=== PATIENT | male | born 1955 | race Caucasian/White ===

== ENCOUNTER 2017-08-09 19:48 | Emergency (ER) | payer OTHER | END 2017-08-10 00:22 | disposition home or self-care (01) | LOC: FTE 08-10 00:22 | DX: S00.03XA Contusion of scalp, initial encounter (principal); S60.521A Blister (nonthermal) of right hand, initial encounter; E11.9 Type 2 diabetes mellitus without complications; I25.10 Atherosclerotic heart disease of native coronary artery without angina pectoris; I10 Essential (primary) hypertension; V49.49XA Driver injured in collision with other motor vehicles in traffic accident, initial encounter; Z79.4 Long term (current) use of insulin; Z79.82 Long term (current) use of aspirin | CPT/HCPCS: 70450; 72125; 99285-25 ==

== ENCOUNTER 2018-04-24 11:41 | Inpatient (IN) | payer OTHER ==
[2018-04-24 15:05] LABS: ADD MAN DIFF? NO
[2018-04-24 15:07] LABS: WHITE BLOOD COUNT 7.8 10^3/ul (4.8-10.8)
[2018-04-24 15:07] LABS: BASOPHILS % 0.5 % (0.0-2.0); EOSINOPHILS # 0.1 10^3/ul (0.0-0.5); HEMATOCRIT 36.5 % (42.0-52.0); HEMOGLOBIN 11.8 g/dl (14.0-18.0); LYMPHOCYTES # 1.5 10^3/ul (0.8-2.9); LYMPHOCYTES % 19.1 % (15.0-51.0); MEAN CORPUSCULAR HEMOGLOBIN 31.6 pg (29.0-33.0); MEAN CORPUSCULAR HGB CONC 32.3 g/dl (32.0-37.0); MEAN CORPUSCULAR VOLUME 97.9 fl (82.0-101.0); MEAN PLATELET VOLUME 10.5 fl (7.4-10.4); MONOCYTE # 0.6 10^3/ul (0.3-0.9); MONOCYTES % 7.8 % (0.0-11.0); NEUTROPHIL # 5.6 10^3/ul (1.6-7.5); NEUTROPHILS % 71.2 % (39.0-77.0); PLATELET COUNT 361 10^3/UL (140-415); RED BLOOD COUNT 3.73 10^6/ul (4.70-6.10); RED CELL DISTRIBUTION WIDTH 13.2 % (11.5-14.5)
[2018-04-24 15:14] LABS: ANION GAP 9 (5-13); BLOOD UREA NITROGEN 26 mg/dl (7-20); CALCIUM 8.7 mg/dl (8.4-10.2); CARBON DIOXIDE 27 mmol/L (21-31); CHLORIDE 101 mmol/L (97-110); CREATININE 1.76 mg/dl (0.61-1.24); Estimated GFR 39 mL/min (>60); POTASSIUM 4.7 mmol/L (3.5-5.1); SODIUM 137 mmol/L (135-144)
[2018-04-24 15:26] LABS: B-TYPE NATRIURETIC PEPTIDE 541 PG/ML (0-125)
[2018-04-24 15:31] LABS: GLUCOSE 460 mg/dl (70-220)
[2018-04-24] MEDS: FUROSEMIDE 20 MG INJ IV (18:03)
[2018-04-24] MEDS ORDERED: ONDANSETRON 4 MG INJ IV (18:30)
[2018-04-24] MEDS ORDERED: ACETAMINOPHEN 325 MG TAB PO (18:30)
[2018-04-24] MEDS: INSULIN ASPART [NOVOLOG] 3 ML PEN SC ×2 (18:52→22:54)
[2018-04-24] MEDS ORDERED: DOCUSATE SODIUM 100 MG CAP PO (20:30)
[2018-04-24] MEDS ORDERED: NACL 0.9% 3 ML SYG IV (20:30)
[2018-04-24] MEDS ORDERED: BISACODYL (EC) 5 MG TAB PO (20:30)
[2018-04-24] MEDS ORDERED: GLUCOSE GEL 15 GRAM TUBE PO ×2 (21:30)
[2018-04-24] MEDS ORDERED: DEXTROSE 50% 50 ML SYRINGE IV ×2 (21:30)
[2018-04-24] MEDS ORDERED: GLUCOSE GEL 15 GRAM TUBE BUCCAL (21:30)
[2018-04-24] MEDS ORDERED: GLUCAGON 1 MG INJ IM (21:30)
[2018-04-24 22:43] LABS: ETHANOL < 10.0 mg/dl (0-0)
[2018-04-24 22:46] LABS: AMPHETAMINE/METHAMPHETAMINE Negative (NEGATIVE); BARBITURATES Negative (NEGATIVE); BENZODIAZEPINES Positive (NEGATIVE); CANNABINOIDS Negative (NEGATIVE); COCAINE Negative (NEGATIVE); OPIATES Negative (NEGATIVE)
[2018-04-24] MEDS: INSULIN GLARGINE [LANTus] (100 UNITS/ML) SYG SC (22:54)
[2018-04-24] MEDS: HEPARIN 5,000 UNIT/1 ML VIAL SC (22:55)
[2018-04-24] MEDS: ATORVASTATIN 40 MG TAB PO (22:56)
[2018-04-25] MEDS: ACETAMINOPHEN 325 MG TAB PO ×2 (00:17→10:42)
[2018-04-25] MEDS: ACCU-CHEK XX (02:32)
[2018-04-25 05:05] LABS: ADD MAN DIFF? NO
[2018-04-25 05:09] LABS: WHITE BLOOD COUNT 6.9 10^3/ul (4.8-10.8)
[2018-04-25 05:09] LABS: BASOPHIL # 0.1 10^3/ul (0.0-0.1); BASOPHILS % 0.9 % (0.0-2.0); EOSINOPHILS # 0.1 10^3/ul (0.0-0.5); EOSINOPHILS % 1.9 % (0.0-7.0); HEMATOCRIT 35.5 % (42.0-52.0); HEMOGLOBIN 11.5 g/dl (14.0-18.0); LYMPHOCYTES % 28.5 % (15.0-51.0); MEAN CORPUSCULAR HEMOGLOBIN 31.6 pg (29.0-33.0); MEAN CORPUSCULAR HGB CONC 32.4 g/dl (32.0-37.0); MEAN CORPUSCULAR VOLUME 97.5 fl (82.0-101.0); MEAN PLATELET VOLUME 10.3 fl (7.4-10.4); MONOCYTE # 0.6 10^3/ul (0.3-0.9); NEUTROPHIL # 4.1 10^3/ul (1.6-7.5); NEUTROPHILS % 59.3 % (39.0-77.0); PLATELET COUNT 367 10^3/UL (140-415); RED BLOOD COUNT 3.64 10^6/ul (4.70-6.10); RED CELL DISTRIBUTION WIDTH 13.1 % (11.5-14.5)
[2018-04-25] MEDS: PANTOPRAZOLE (EC) 40 MG TAB PO (05:14)
[2018-04-25] MEDS: BENZONATATE 100 MG CAP PO ×2 (05:18→22:14)
[2018-04-25 05:30] LABS: ALANINE AMINOTRANSFERASE 25 IU/L (13-69); ALBUMIN 3.1 g/dl (3.3-4.9); ALKALINE PHOSPHATASE 102 IU/L (42-121); ANION GAP 9 (5-13); ASPARTATE AMINO TRANSFERASE 24 IU/L (15-46); BLOOD UREA NITROGEN 25 mg/dl (7-20); CALCIUM 9.1 mg/dl (8.4-10.2); CARBON DIOXIDE 30 mmol/L (21-31); CHLORIDE 102 mmol/L (97-110); CREATININE 1.46 mg/dl (0.61-1.24); Estimated GFR 49 mL/min (>60); GLUCOSE 203 mg/dl (70-220); MAGNESIUM 1.9 mg/dl (1.7-2.5); POTASSIUM 4.2 mmol/L (3.5-5.1); SODIUM 141 mmol/L (135-144); TOTAL PROTEIN 6.2 g/dl (6.1-8.1)
[2018-04-25] MEDS: HEPARIN 5,000 UNIT/1 ML VIAL SC ×3 (06:19→21:43)
[2018-04-25] MEDS: INSULIN ASPART [NOVOLOG] 3 ML PEN SC ×7 (08:11→21:00)
[2018-04-25] MEDS: ASPIRIN (EC) 81 MG TAB PO (08:12)
[2018-04-25] MEDS: CLOPIDOGREL 75 MG TAB PO (08:12)
[2018-04-25] MEDS ORDERED: NON-FORMULARY/PATIENT OWN MED (Omeprazole* 20 MG) PO (09:00)
[2018-04-25] MEDS: FUROSEMIDE 40 MG INJ IV (09:23)
[2018-04-25] MEDS: FLUTICASONE/VILANTEROL 100-25 INH (10:43)
[2018-04-25 11:15] LABS: ADD UMIC YES; UR ASCORBIC ACID NEGATIVE (NEGATIVE); UR BACTERIA FEW /HPF (NONE SEEN); UR BILIRUBIN (Dip) NEGATIVE (NEGATIVE); UR BLOOD (Dip) NEGATIVE (NEGATIVE); UR CLARITY CLEAR (CLEAR); UR COLOR STRAW (YELLOW); UR GLUCOSE (Dip) 2+ mg/dL (NEGATIVE); UR KETONES (Dip) NEGATIVE (NEGATIVE); UR LEUKOCYTE ESTERASE (Dip) NEGATIVE Leu/ul (NEGATIVE); UR NITRITE (Dip) NEGATIVE (NEGATIVE); UR RBC 0 /HPF (0-5); UR SPECIFIC GRAVITY (Dip) 1.013 (1.003-1.030); UR TOTAL PROTEIN (Dip) 3+ mg/dl (NEGATIVE); UR UROBILINOGEN (Dip) NEGATIVE (NEGATIVE); UR WBC 0 /HPF (0-5)
[2018-04-25 11:22] LABS: CREATININE,URINE RANDOM 54.55 mg/dl (20-370)
[2018-04-25 11:22] LABS: SODIUM,URINE RANDOM 129 mmol/L (30-90)
[2018-04-25] MEDS: ATORVASTATIN 40 MG TAB PO (20:35)
[2018-04-25] MEDS: INSULIN GLARGINE [LANTus] (100 UNITS/ML) SYG SC (20:37)
[2018-04-26] MEDS: ACCU-CHEK XX (02:00)
[2018-04-26] MEDS: HEPARIN 5,000 UNIT/1 ML VIAL SC ×3 (05:20→21:49)
[2018-04-26] MEDS: PANTOPRAZOLE (EC) 40 MG TAB PO (05:20)
[2018-04-26 05:21] LABS: ADD MAN DIFF? NO
[2018-04-26 05:22] LABS: BASOPHIL # 0.1 10^3/ul (0.0-0.1); BASOPHILS % 0.9 % (0.0-2.0); EOSINOPHILS # 0.1 10^3/ul (0.0-0.5); EOSINOPHILS % 1.7 % (0.0-7.0); HEMATOCRIT 37.2 % (42.0-52.0); LYMPHOCYTES % 28.5 % (15.0-51.0); MEAN CORPUSCULAR HEMOGLOBIN 31.4 pg (29.0-33.0); MEAN CORPUSCULAR HGB CONC 32.3 g/dl (32.0-37.0); MEAN CORPUSCULAR VOLUME 97.4 fl (82.0-101.0); MEAN PLATELET VOLUME 9.9 fl (7.4-10.4); MONOCYTE # 0.6 10^3/ul (0.3-0.9); NEUTROPHIL # 4.1 10^3/ul (1.6-7.5); NEUTROPHILS % 59.3 % (39.0-77.0); PLATELET COUNT 394 10^3/UL (140-415); RED BLOOD COUNT 3.82 10^6/ul (4.70-6.10); RED CELL DISTRIBUTION WIDTH 13.1 % (11.5-14.5)
[2018-04-26] MEDS: BENZONATATE 100 MG CAP PO ×2 (05:25→14:21)
[2018-04-26 05:56] LABS: ANION GAP 7 (5-13); BLOOD UREA NITROGEN 22 mg/dl (7-20); CALCIUM 9.1 mg/dl (8.4-10.2); CARBON DIOXIDE 31 mmol/L (21-31); CHLORIDE 103 mmol/L (97-110); CREATININE 1.27 mg/dl (0.61-1.24); Estimated GFR 57 mL/min (>60); GLUCOSE 182 mg/dl (70-220); MAGNESIUM 1.9 mg/dl (1.7-2.5); PHOSPHORUS 5.5 mg/dl (2.5-4.9); POTASSIUM 4.1 mmol/L (3.5-5.1); SODIUM 141 mmol/L (135-144)
[2018-04-26 06:06] LABS: FREE T4 (FREE THYROXINE) 0.99 ng/dl (0.78-2.44)
[2018-04-26 07:07] LABS: CHOL/HDL RATIO 4.8 RATIO; HDL CHOLESTEROL 34 mg/dl (30-78); LDL CHOLESTEROL,CALCULATED 73 mg/dl; TRIGLYCERIDES 297 mg/dl (0-149)
[2018-04-26 07:07] LABS: CHOLESTEROL 166 mg/dl (100-200)
[2018-04-26] MEDS: INSULIN ASPART [NOVOLOG] 3 ML PEN SC ×7 (08:00→21:48)
[2018-04-26] MEDS: CLOPIDOGREL 75 MG TAB PO (08:05)
[2018-04-26] MEDS: FUROSEMIDE 40 MG INJ IV (08:05)
[2018-04-26] MEDS: ASPIRIN (EC) 81 MG TAB PO (08:06)
[2018-04-26] MEDS: FLUTICASONE/VILANTEROL 100-25 INH (08:06)
[2018-04-26 09:08] LABS: HAAIG REFLEX REFLEX FILED
[2018-04-26 10:20] LABS: HEMOGLOBIN A1C 10.2 % (0-5.9)
[2018-04-26 10:53] LABS: COMPLEMENT C3 142 mg/dl (88-165); COMPLEMENT C4 21 mg/dl (14-44)
[2018-04-26 11:19] LABS: HEPATITIS B SURFACE ANTIGEN NEGATIVE (NEGATIVE)
[2018-04-26 11:37] LABS: HEPATITIS B CORE ANTIBODY NEGATIVE (NEGATIVE); HEPATITIS C VIRAL ANTIBODY NEGATIVE (NEGATIVE)
[2018-04-26 19:12] LABS: RHEUMATOID FACTOR NEGATIVE (NEGATIVE)
[2018-04-26] MEDS: ATORVASTATIN 40 MG TAB PO (21:45)
[2018-04-26] MEDS: INSULIN GLARGINE [LANTus] (100 UNITS/ML) SYG SC (21:47)
[2018-04-27] MEDS: ACCU-CHEK XX (01:34)
[2018-04-27 05:29] LABS: ADD MAN DIFF? NO
[2018-04-27 05:33] LABS: BASOPHIL # 0.1 10^3/ul (0.0-0.1); BASOPHILS % 1.1 % (0.0-2.0); EOSINOPHILS # 0.1 10^3/ul (0.0-0.5); HEMOGLOBIN 12.3 g/dl (14.0-18.0); LYMPHOCYTES # 1.8 10^3/ul (0.8-2.9); LYMPHOCYTES % 27.2 % (15.0-51.0); MEAN CORPUSCULAR HEMOGLOBIN 31.7 pg (29.0-33.0); MEAN CORPUSCULAR HGB CONC 33.2 g/dl (32.0-37.0); MEAN CORPUSCULAR VOLUME 95.4 fl (82.0-101.0); MEAN PLATELET VOLUME 10.1 fl (7.4-10.4); MONOCYTE # 0.5 10^3/ul (0.3-0.9); MONOCYTES % 8.2 % (0.0-11.0); NEUTROPHILS % 60.9 % (39.0-77.0); PLATELET COUNT 367 10^3/UL (140-415); RED BLOOD COUNT 3.88 10^6/ul (4.70-6.10); RED CELL DISTRIBUTION WIDTH 13.2 % (11.5-14.5)
[2018-04-27 05:33] LABS: WHITE BLOOD COUNT 6.6 10^3/ul (4.8-10.8)
[2018-04-27] MEDS: PANTOPRAZOLE (EC) 40 MG TAB PO (05:46)
[2018-04-27] MEDS: HEPARIN 5,000 UNIT/1 ML VIAL SC ×2 (05:48→14:20)
[2018-04-27 06:15] LABS: ANION GAP 8 (5-13); BLOOD UREA NITROGEN 21 mg/dl (7-20); CALCIUM 8.9 mg/dl (8.4-10.2); CARBON DIOXIDE 30 mmol/L (21-31); CHLORIDE 102 mmol/L (97-110); CREATININE 1.25 mg/dl (0.61-1.24); Estimated GFR 59 mL/min (>60); GLUCOSE 264 mg/dl (70-220); MAGNESIUM 1.9 mg/dl (1.7-2.5); PHOSPHORUS 4.4 mg/dl (2.5-4.9); POTASSIUM 4.4 mmol/L (3.5-5.1); SODIUM 140 mmol/L (135-144)
[2018-04-27] MEDS: INSULIN ASPART [NOVOLOG] 3 ML PEN SC ×4 (08:03→12:32)
[2018-04-27] MEDS: FLUTICASONE/VILANTEROL 100-25 INH (08:33)
[2018-04-27] MEDS: ASPIRIN (EC) 81 MG TAB PO (08:33)
[2018-04-27] MEDS: ACETAMINOPHEN 325 MG TAB PO (08:33)
[2018-04-27] MEDS: CLOPIDOGREL 75 MG TAB PO (08:33)
[2018-04-27] MEDS: FUROSEMIDE 40 MG INJ IV (08:34)
[2018-04-27 17:47] LABS: CREATININE, RANDOM URINE 55 mg/dL (20-320); MICROALBUMIN 208.3 mg/dL; MICROALBUMIN/CREATININE RATIO 3787 (<30)
[2018-04-28 13:21] LABS: ANA SCREEN NEGATIVE (NEGATIVE); ANCA SCREEN NEGATIVE (NEGATIVE)
[2018-04-28 14:07] LABS: MYELOPEROXIDASE ANTIBODY <1.0 AI; PROTEINASE-3 ANTIBODY <1.0 AI
[2018-04-29 16:21] LABS: ANTI-DNA (DOUBLE STRANDED) <95 U/mL (< 301)
== END 2018-04-27 17:10 | disposition home or self-care (01) | DRG 683 ==
LOC: E/R 11:41 → PP2 18:28
PROC: 3E0234Z Introduction of Serum, Toxoid and Vaccine into Muscle, Percutaneous Approach (ICD-10-PCS; principal; 2018-04-26)
DX: N17.9 Acute kidney failure, unspecified (principal); I13.0 Hypertensive heart and chronic kidney disease with heart failure and stage 1 through stage 4 chronic kidney disease, or unspecified chronic kidney disease; I50.30 Unspecified diastolic (congestive) heart failure; G47.33 Obstructive sleep apnea (adult) (pediatric); E78.5 Hyperlipidemia, unspecified; E11.65 Type 2 diabetes mellitus with hyperglycemia; N18.9 Chronic kidney disease, unspecified; E11.22 Type 2 diabetes mellitus with diabetic chronic kidney disease; E11.51 Type 2 diabetes mellitus with diabetic peripheral angiopathy without gangrene; E11.21 Type 2 diabetes mellitus with diabetic nephropathy; E11.621 Type 2 diabetes mellitus with foot ulcer; B35.1 Tinea unguium; D64.9 Anemia, unspecified; Z23 Encounter for immunization; I25.10 Atherosclerotic heart disease of native coronary artery without angina pectoris; E11.42 Type 2 diabetes mellitus with diabetic polyneuropathy; J40 Bronchitis, not specified as acute or chronic; E66.9 Obesity, unspecified; Z86.73 Personal history of transient ischemic attack (TIA), and cerebral infarction without residual deficits; Z79.4 Long term (current) use of insulin; Z79.82 Long term (current) use of aspirin; Z68.31 Body mass index [BMI] 31.0-31.9, adult; S80.921A Unspecified superficial injury of right lower leg, initial encounter; X58.XXXA Exposure to other specified factors, initial encounter
CPT/HCPCS: 36415; 71045; 71250; 73590; 76775; 80048; 80053; 80061; 80307; 81001; 81003; 82040; 82043; 82595; 82962; 83036; 83735; 83880; 84100; 84155; 84300; 84439; 84443; 84484; 85025; 86021; 86038; 86160; 86226; 86430; 86704; 86709; 86803; 87081; 87340; 90686; 93005; 93923; 93970; 96374; 99285-25; G0378

== ENCOUNTER 2018-07-31 22:34 | Inpatient (IN) | payer OTHER ==
[2018-08-01 00:51] LABS: ADD MAN DIFF? NO
[2018-08-01 00:56] LABS: BASOPHIL # 0.1 10^3/ul (0.0-0.1); BASOPHILS % 0.4 % (0.0-2.0); EOSINOPHILS % 0.1 % (0.0-7.0); HEMATOCRIT 40.4 % (42.0-52.0); HEMOGLOBIN 14.6 g/dl (14.0-18.0); LYMPHOCYTES # 2.5 10^3/ul (0.8-2.9); LYMPHOCYTES % 17.9 % (15.0-51.0); MEAN CORPUSCULAR HEMOGLOBIN 30.9 pg (29.0-33.0); MEAN CORPUSCULAR HGB CONC 36.1 g/dl (32.0-37.0); MEAN CORPUSCULAR VOLUME 85.4 fl (82.0-101.0); MEAN PLATELET VOLUME 9.9 fl (7.4-10.4); MONOCYTE # 0.7 10^3/ul (0.3-0.9); MONOCYTES % 4.8 % (0.0-11.0); NEUTROPHIL # 10.6 10^3/ul (1.6-7.5); NEUTROPHILS % 76.4 % (39.0-77.0); PLATELET COUNT 310 10^3/UL (140-415); RED BLOOD COUNT 4.73 10^6/ul (4.70-6.10); RED CELL DISTRIBUTION WIDTH 11.8 % (11.5-14.5)
[2018-08-01 00:56] LABS: WHITE BLOOD COUNT 13.8 10^3/ul (4.8-10.8)
[2018-08-01 01:16] LABS: ALANINE AMINOTRANSFERASE 39 IU/L (13-69); ALBUMIN 3.4 g/dl (3.3-4.9); ALBUMIN/GLOBULIN RATIO 1.21; ALKALINE PHOSPHATASE 117 IU/L (42-121); ANION GAP 23 (5-13); ASPARTATE AMINO TRANSFERASE 29 IU/L (15-46); BILIRUBIN,INDIRECT 0.4 mg/dl (0-1.1); BILIRUBIN,TOTAL 0.4 mg/dl (0.2-1.3); BLOOD UREA NITROGEN 24 mg/dl (7-20); CALCIUM 8.9 mg/dl (8.4-10.2); CARBON DIOXIDE 19 mmol/L (21-31); CHLORIDE 92 mmol/L (97-110); CREATININE 1.32 mg/dl (0.61-1.24); Estimated GFR 55 mL/min (>60); LIPASE 227 U/L (23-300); POTASSIUM 3.7 mmol/L (3.5-5.1); SODIUM 134 mmol/L (135-144); TOTAL PROTEIN 6.2 g/dl (6.1-8.1)
[2018-08-01] MEDS: SOD CHLORIDE 0.9% 1,000 ML IV (01:19)
[2018-08-01] MEDS: ONDANSETRON 4 MG INJ IV ×2 (01:19→21:28)
[2018-08-01 01:26] LABS: GLUCOSE 456 mg/dl (70-220)
[2018-08-01] MEDS: INSULIN REGULAR, HUMAN 100 UNIT/1 ML 3ML VIAL SC (02:35)
[2018-08-01 04:54] LABS: MODE ROOM AIR; MetHgb Venous 0.2 %; Sample Type Blood venous; Site VENOUS LINE; Venous COHb 0.3 %; Venous Oxygen Sat 89.4 mmHG (55.0-75.0); Venous Total Hemglobin 13.2 g/dl
[2018-08-01 05:45] LABS: ANION GAP 17 (5-13); BLOOD UREA NITROGEN 21 mg/dl (7-20); CALCIUM 8.1 mg/dl (8.4-10.2); CARBON DIOXIDE 18 mmol/L (21-31); CHLORIDE 104 mmol/L (97-110); CREATININE 1.06 mg/dl (0.61-1.24); Estimated GFR > 60 mL/min (>60); GLUCOSE 260 mg/dl (70-220); SODIUM 139 mmol/L (135-144)
[2018-08-01] MEDS ORDERED: ONDANSETRON 4 MG INJ IV (06:00)
[2018-08-01] MEDS ORDERED: ACETAMINOPHEN 325 MG TAB PO (06:00)
[2018-08-01] MEDS ORDERED: ONDANSETRON 4 MG TAB PO (06:30)
[2018-08-01] MEDS ORDERED: DOCUSATE SODIUM 100 MG CAP PO (06:30)
[2018-08-01] MEDS ORDERED: NACL 0.9% 3 ML SYG IV (06:30)
[2018-08-01 07:00] LABS: MAGNESIUM 2.1 mg/dl (1.7-2.5)
[2018-08-01] MEDS ORDERED: NON-FORMULARY/PATIENT OWN MED (Omeprazole* 20 MG) PO (09:00)
[2018-08-01] MEDS: ACETAMINOPHEN 325 MG TAB PO (09:03)
[2018-08-01] MEDS: POTASSIUM CHLORIDE (SR) 20 MEQ TAB PO (09:05)
[2018-08-01] MEDS: ASPIRIN (EC) 81 MG TAB PO (09:06)
[2018-08-01] MEDS: THIAMINE 100 MG TAB PO (09:06)
[2018-08-01] MEDS: CHLORDIAZEPOXIDE 25 MG CAP PO ×3 (09:09→20:34)
[2018-08-01] MEDS: FOLIC ACID 1 MG TAB PO (09:09)
[2018-08-01] MEDS: MULTIVITAMINS THERAPEUTIC TAB PO (09:09)
[2018-08-01] MEDS: AMLODIPINE 2.5 MG TAB PO (09:10)
[2018-08-01] MEDS: CLOPIDOGREL 75 MG TAB PO (09:11)
[2018-08-01] MEDS: MULTIVITAMINS 10 ML, THIAMINE 100 MG, FOLIC ACID 1 MG in SOD CHLORIDE 0.9% 1,000 ML IVPB (09:11)
[2018-08-01] MEDS: INSULIN GLARGINE [LANTus] (100 UNITS/ML) SYG SC ×2 (09:27→20:36)
[2018-08-01] MEDS: INSULIN ASPART [NOVOLOG] 3 ML PEN SC ×5 (09:29→20:34)
[2018-08-01] MEDS: LORAZEPAM 1 MG TAB PO (12:28)
[2018-08-01] MEDS: FLUTICASONE/VILANTEROL 100-25 INH (17:54)
[2018-08-01] MEDS: traMADol 50 MG TAB PO (18:42)
[2018-08-01] MEDS: ATORVASTATIN 20 MG TAB PO (20:34)
[2018-08-01] MEDS: HEPARIN 5,000 UNIT/1 ML VIAL SC (20:37)
[2018-08-01] MEDS: CEPASTAT LOZENGE MT ×2 (20:56→23:16)
[2018-08-01] MEDS: HYDROCODONE/APAP (5/325) TAB PO (21:27)
[2018-08-02] MEDS: LABETALOL 200 MG TAB PO (01:41)
[2018-08-02 05:09] LABS: ADD MAN DIFF? NO
[2018-08-02 05:22] LABS: BASOPHILS % 0.4 % (0.0-2.0); EOSINOPHILS % 0.4 % (0.0-7.0); HEMATOCRIT 35.8 % (42.0-52.0); HEMOGLOBIN 12.6 g/dl (14.0-18.0); LYMPHOCYTES # 2.3 10^3/ul (0.8-2.9); LYMPHOCYTES % 22.9 % (15.0-51.0); MEAN CORPUSCULAR HGB CONC 35.2 g/dl (32.0-37.0); MEAN PLATELET VOLUME 9.7 fl (7.4-10.4); MONOCYTE # 0.5 10^3/ul (0.3-0.9); MONOCYTES % 5.3 % (0.0-11.0); NEUTROPHIL # 6.9 10^3/ul (1.6-7.5); NEUTROPHILS % 70.5 % (39.0-77.0); PLATELET COUNT 211 10^3/UL (140-415); RED BLOOD COUNT 4.07 10^6/ul (4.70-6.10)
[2018-08-02 05:22] LABS: WHITE BLOOD COUNT 9.8 10^3/ul (4.8-10.8)
[2018-08-02 05:51] LABS: PHOSPHORUS 2.9 mg/dl (2.5-4.9)
[2018-08-02 05:51] LABS: MAGNESIUM 1.9 mg/dl (1.7-2.5)
[2018-08-02] MEDS: PANTOPRAZOLE (EC) 40 MG TAB PO (05:56)
[2018-08-02] MEDS: HYDROCODONE/APAP (5/325) TAB PO ×2 (05:56→10:33)
[2018-08-02 05:57] LABS: ALANINE AMINOTRANSFERASE 41 IU/L (13-69); ALBUMIN 2.5 g/dl (3.3-4.9); ALKALINE PHOSPHATASE 110 IU/L (42-121); ANION GAP 12 (5-13); ASPARTATE AMINO TRANSFERASE 39 IU/L (15-46); BILIRUBIN,INDIRECT 0.7 mg/dl (0-1.1); BILIRUBIN,TOTAL 0.7 mg/dl (0.2-1.3); BLOOD UREA NITROGEN 18 mg/dl (7-20); CALCIUM 7.4 mg/dl (8.4-10.2); CARBON DIOXIDE 21 mmol/L (21-31); CHLORIDE 101 mmol/L (97-110); CHOL/HDL RATIO 3.4 RATIO; CHOLESTEROL 92 mg/dl (100-200); CREATININE 1.08 mg/dl (0.61-1.24); Estimated GFR > 60 mL/min (>60); GLUCOSE 231 mg/dl (70-220); HDL CHOLESTEROL 27 mg/dl (30-78); POTASSIUM 3.1 mmol/L (3.5-5.1); SODIUM 134 mmol/L (135-144)
[2018-08-02 06:15] LABS: TRIGLYCERIDES 671 mg/dl (0-149)
[2018-08-02 07:13] LABS: HEMOGLOBIN A1C 10.3 % (0-5.9)
[2018-08-02] MEDS: ASPIRIN (EC) 81 MG TAB PO (08:08)
[2018-08-02] MEDS: FOLIC ACID 1 MG TAB PO (08:08)
[2018-08-02] MEDS: CHLORDIAZEPOXIDE 25 MG CAP PO ×2 (08:09→13:08)
[2018-08-02] MEDS: THIAMINE 100 MG TAB PO (08:09)
[2018-08-02] MEDS: MULTIVITAMINS THERAPEUTIC TAB PO (08:10)
[2018-08-02] MEDS: FLUTICASONE/VILANTEROL 100-25 INH (08:10)
[2018-08-02] MEDS: CLOPIDOGREL 75 MG TAB PO (08:10)
[2018-08-02] MEDS: HEPARIN 5,000 UNIT/1 ML VIAL SC ×2 (08:11→20:10)
[2018-08-02] MEDS: INSULIN ASPART [NOVOLOG] 3 ML PEN SC ×7 (08:12→20:09)
[2018-08-02] MEDS: AMLODIPINE 2.5 MG TAB PO (08:14)
[2018-08-02] MEDS: ENALAPRILAT 1.25 MG INJ IV (08:15)
[2018-08-02] MEDS ORDERED: GLUCOSE GEL 15 GRAM TUBE BUCCAL (10:30)
[2018-08-02] MEDS ORDERED: DEXTROSE 50% 50 ML SYRINGE IV ×2 (10:30)
[2018-08-02] MEDS ORDERED: GLUCAGON 1 MG INJ IM (10:30)
[2018-08-02] MEDS ORDERED: GLUCOSE GEL 15 GRAM TUBE PO ×2 (10:30)
[2018-08-02] MEDS: ONDANSETRON 4 MG INJ IV (10:32)
[2018-08-02] MEDS: POTASSIUM CHLORIDE (SR) 20 MEQ TAB PO (10:33)
[2018-08-02] MEDS: BISACODYL (EC) 5 MG TAB PO (10:38)
[2018-08-02] MEDS: metFORMIN 500 MG TAB PO (17:42)
[2018-08-02] MEDS: traMADol 50 MG TAB PO (20:04)
[2018-08-02] MEDS: ATORVASTATIN 20 MG TAB PO (20:04)
[2018-08-02] MEDS: INSULIN GLARGINE [LANTus] (100 UNITS/ML) SYG SC (20:09)
[2018-08-02] MEDS: LORAZEPAM 1 MG TAB PO (21:06)
[2018-08-02] MEDS: CEPASTAT LOZENGE MT (21:59)
[2018-08-03] MEDS: ACETAMINOPHEN 325 MG TAB PO ×3 (02:08→22:15)
[2018-08-03] MEDS: CEPASTAT LOZENGE MT (02:09)
[2018-08-03 05:19] LABS: ADD MAN DIFF? NO
[2018-08-03 05:20] LABS: BASOPHIL # 0.1 10^3/ul (0.0-0.1); BASOPHILS % 0.4 % (0.0-2.0); EOSINOPHILS # 0.2 10^3/ul (0.0-0.5); EOSINOPHILS % 1.1 % (0.0-7.0); HEMATOCRIT 35.3 % (42.0-52.0); HEMOGLOBIN 12.3 g/dl (14.0-18.0); LYMPHOCYTES # 1.8 10^3/ul (0.8-2.9); LYMPHOCYTES % 10.6 % (15.0-51.0); MEAN CORPUSCULAR HEMOGLOBIN 30.8 pg (29.0-33.0); MEAN CORPUSCULAR HGB CONC 34.8 g/dl (32.0-37.0); MEAN CORPUSCULAR VOLUME 88.3 fl (82.0-101.0); MEAN PLATELET VOLUME 10.1 fl (7.4-10.4); MONOCYTE # 0.8 10^3/ul (0.3-0.9); MONOCYTES % 4.6 % (0.0-11.0); NEUTROPHIL # 13.6 10^3/ul (1.6-7.5); NEUTROPHILS % 81.9 % (39.0-77.0); NUCLEATED RED BLOOD CELLS% 0.2 /100WBC (0.0-0.0); PLATELET COUNT 146 10^3/UL (140-415)
[2018-08-03 05:20] LABS: WHITE BLOOD COUNT 16.6 10^3/ul (4.8-10.8)
[2018-08-03 05:39] LABS: ALANINE AMINOTRANSFERASE 43 IU/L (13-69); ALBUMIN 2.6 g/dl (3.3-4.9); ALKALINE PHOSPHATASE 127 IU/L (42-121); ANION GAP 10 (5-13); ASPARTATE AMINO TRANSFERASE 46 IU/L (15-46); BILIRUBIN,INDIRECT 0.7 mg/dl (0-1.1); BILIRUBIN,TOTAL 0.7 mg/dl (0.2-1.3); BLOOD UREA NITROGEN 14 mg/dl (7-20); CALCIUM 7.2 mg/dl (8.4-10.2); CARBON DIOXIDE 22 mmol/L (21-31); CHLORIDE 98 mmol/L (97-110); CREATININE 1.19 mg/dl (0.61-1.24); Estimated GFR > 60 mL/min (>60); GLUCOSE 183 mg/dl (70-220); POTASSIUM 3.4 mmol/L (3.5-5.1); SODIUM 130 mmol/L (135-144); TOTAL PROTEIN 5.2 g/dl (6.1-8.1)
[2018-08-03] MEDS: PANTOPRAZOLE (EC) 40 MG TAB PO (05:40)
[2018-08-03] MEDS: traMADol 50 MG TAB PO (05:41)
[2018-08-03] MEDS: AMLODIPINE 2.5 MG TAB PO (08:03)
[2018-08-03] MEDS: FOLIC ACID 1 MG TAB PO (08:03)
[2018-08-03] MEDS: CLOPIDOGREL 75 MG TAB PO (08:03)
[2018-08-03] MEDS: ASPIRIN (EC) 81 MG TAB PO (08:03)
[2018-08-03] MEDS: FLUTICASONE/VILANTEROL 100-25 INH (08:03)
[2018-08-03] MEDS: THIAMINE 100 MG TAB PO (08:04)
[2018-08-03] MEDS: MULTIVITAMINS THERAPEUTIC TAB PO (08:04)
[2018-08-03] MEDS: metFORMIN 500 MG TAB PO ×2 (08:04→17:47)
[2018-08-03] MEDS: INSULIN ASPART [NOVOLOG] 3 ML PEN SC ×7 (08:10→20:51)
[2018-08-03] MEDS: HEPARIN 5,000 UNIT/1 ML VIAL SC ×2 (08:11→21:01)
[2018-08-03] MEDS ORDERED: CHLORDIAZEPOXIDE 25 MG CAP PO (09:00)
[2018-08-03] MEDS: SOD CHLORIDE 0.9% 1,000 ML IV (11:32)
[2018-08-03] MEDS: POTASSIUM CHLORIDE (SR) 20 MEQ TAB PO (11:33)
[2018-08-03] MEDS: CEFTRIAXONE 1 GM/50 ML (PMX) 50 ML IVPB (16:05)
[2018-08-03] MEDS: ATORVASTATIN 20 MG TAB PO (20:59)
[2018-08-03 21:37] LABS: GLUCOSE 86 mg/dl (70-220)
[2018-08-03] MEDS: INSULIN GLARGINE [LANTus] (100 UNITS/ML) SYG SC (22:20)
[2018-08-03 22:31] LABS: ADD UMIC YES; UR ASCORBIC ACID NEGATIVE (NEGATIVE); UR BACTERIA FEW /HPF (NONE SEEN); UR BILIRUBIN (Dip) NEGATIVE (NEGATIVE); UR BLOOD (Dip) 3+ mg/dL (NEGATIVE); UR CLARITY CLEAR (CLEAR); UR COLOR YELLOW (YELLOW); UR GLUCOSE (Dip) NEGATIVE (NEGATIVE); UR KETONES (Dip) NEGATIVE (NEGATIVE); UR LEUKOCYTE ESTERASE (Dip) 3+ Leu/ul (NEGATIVE); UR NITRITE (Dip) NEGATIVE (NEGATIVE); UR RBC 14 /HPF (0-5); UR SPECIFIC GRAVITY (Dip) 1.008 (1.003-1.030); UR SQUAMOUS EPITHELIAL CELL MODERATE /HPF (FEW); UR TOTAL PROTEIN (Dip) 2+ mg/dl (NEGATIVE); UR UROBILINOGEN (Dip) NEGATIVE (NEGATIVE); UR WBC 27 /HPF (0-5)
[2018-08-04] MEDS: CEPASTAT LOZENGE MT ×2 (04:36→16:20)
[2018-08-04] MEDS: PANTOPRAZOLE (EC) 40 MG TAB PO (06:04)
[2018-08-04] MEDS: INSULIN ASPART [NOVOLOG] 3 ML PEN SC ×7 (07:59→20:32)
[2018-08-04 08:14] LABS: ADD MAN DIFF? NO
[2018-08-04] MEDS: FOLIC ACID 1 MG TAB PO (08:17)
[2018-08-04] MEDS: ASPIRIN (EC) 81 MG TAB PO (08:17)
[2018-08-04] MEDS: MULTIVITAMINS THERAPEUTIC TAB PO (08:17)
[2018-08-04] MEDS: CLOPIDOGREL 75 MG TAB PO (08:17)
[2018-08-04] MEDS: THIAMINE 100 MG TAB PO (08:17)
[2018-08-04] MEDS: AMLODIPINE 2.5 MG TAB PO (08:17)
[2018-08-04] MEDS: metFORMIN 500 MG TAB PO ×2 (08:17→17:52)
[2018-08-04] MEDS: FLUTICASONE/VILANTEROL 100-25 INH (08:18)
[2018-08-04] MEDS: HEPARIN 5,000 UNIT/1 ML VIAL SC ×2 (08:20→20:33)
[2018-08-04 08:22] LABS: WHITE BLOOD COUNT 16.8 10^3/ul (4.8-10.8)
[2018-08-04 08:22] LABS: BASOPHIL # 0.1 10^3/ul (0.0-0.1); BASOPHILS % 0.4 % (0.0-2.0); EOSINOPHILS # 0.2 10^3/ul (0.0-0.5); EOSINOPHILS % 1.1 % (0.0-7.0); HEMATOCRIT 34.4 % (42.0-52.0); LYMPHOCYTES # 1.3 10^3/ul (0.8-2.9); LYMPHOCYTES % 7.9 % (15.0-51.0); MEAN CORPUSCULAR HEMOGLOBIN 31.3 pg (29.0-33.0); MEAN CORPUSCULAR HGB CONC 34.9 g/dl (32.0-37.0); MEAN CORPUSCULAR VOLUME 89.6 fl (82.0-101.0); MEAN PLATELET VOLUME 10.4 fl (7.4-10.4); MONOCYTE # 0.7 10^3/ul (0.3-0.9); MONOCYTES % 4.4 % (0.0-11.0); NEUTROPHIL # 14.3 10^3/ul (1.6-7.5); NEUTROPHILS % 85.4 % (39.0-77.0); PLATELET COUNT 117 10^3/UL (140-415); RED BLOOD COUNT 3.84 10^6/ul (4.70-6.10); RED CELL DISTRIBUTION WIDTH 12.8 % (11.5-14.5)
[2018-08-04 08:32] LABS: ALANINE AMINOTRANSFERASE 29 IU/L (13-69); ALBUMIN 2.5 g/dl (3.3-4.9); ALBUMIN/GLOBULIN RATIO 0.83; ALKALINE PHOSPHATASE 160 IU/L (42-121); ANION GAP 6 (5-13); ASPARTATE AMINO TRANSFERASE 24 IU/L (15-46); BILIRUBIN,INDIRECT 0.3 mg/dl (0-1.1); BILIRUBIN,TOTAL 0.3 mg/dl (0.2-1.3); BLOOD UREA NITROGEN 14 mg/dl (7-20); CALCIUM 7.8 mg/dl (8.4-10.2); CARBON DIOXIDE 24 mmol/L (21-31); CHLORIDE 106 mmol/L (97-110); CREATININE 1.34 mg/dl (0.61-1.24); Estimated GFR 54 mL/min (>60); GLUCOSE 276 mg/dl (70-220); POTASSIUM 3.5 mmol/L (3.5-5.1); SODIUM 136 mmol/L (135-144); TOTAL PROTEIN 5.5 g/dl (6.1-8.1)
[2018-08-04] MEDS: CEFTRIAXONE 1 GM/50 ML (PMX) 50 ML IVPB (14:49)
[2018-08-04] MEDS: GABAPENTIN 300 MG CAP PO ×2 (15:55→21:34)
[2018-08-04] MEDS: ATORVASTATIN 20 MG TAB PO (20:27)
[2018-08-04] MEDS: INSULIN GLARGINE [LANTus] (100 UNITS/ML) SYG SC (20:33)
[2018-08-05 05:22] LABS: ADD MAN DIFF? NO
[2018-08-05 05:35] LABS: BASOPHILS % 0.2 % (0.0-2.0); EOSINOPHILS # 0.3 10^3/ul (0.0-0.5); EOSINOPHILS % 2.2 % (0.0-7.0); HEMATOCRIT 33.1 % (42.0-52.0); HEMOGLOBIN 11.5 g/dl (14.0-18.0); LYMPHOCYTES # 1.7 10^3/ul (0.8-2.9); LYMPHOCYTES % 14.3 % (15.0-51.0); MEAN CORPUSCULAR HEMOGLOBIN 31.4 pg (29.0-33.0); MEAN CORPUSCULAR HGB CONC 34.7 g/dl (32.0-37.0); MEAN CORPUSCULAR VOLUME 90.4 fl (82.0-101.0); MEAN PLATELET VOLUME 10.8 fl (7.4-10.4); MONOCYTE # 0.7 10^3/ul (0.3-0.9); MONOCYTES % 5.9 % (0.0-11.0); NEUTROPHIL # 9.3 10^3/ul (1.6-7.5); NEUTROPHILS % 76.7 % (39.0-77.0); PLATELET COUNT 125 10^3/UL (140-415); RED BLOOD COUNT 3.66 10^6/ul (4.70-6.10); RED CELL DISTRIBUTION WIDTH 12.9 % (11.5-14.5)
[2018-08-05 05:35] LABS: WHITE BLOOD COUNT 12.1 10^3/ul (4.8-10.8)
[2018-08-05] MEDS: PANTOPRAZOLE (EC) 40 MG TAB PO (05:55)
[2018-08-05 06:27] LABS: ALANINE AMINOTRANSFERASE 34 IU/L (13-69); ALBUMIN 2.5 g/dl (3.3-4.9); ALKALINE PHOSPHATASE 176 IU/L (42-121); ANION GAP 7 (5-13); ASPARTATE AMINO TRANSFERASE 41 IU/L (15-46); BILIRUBIN,INDIRECT 0.1 mg/dl (0-1.1); BILIRUBIN,TOTAL 0.1 mg/dl (0.2-1.3); BLOOD UREA NITROGEN 12 mg/dl (7-20); CALCIUM 8.2 mg/dl (8.4-10.2); CARBON DIOXIDE 24 mmol/L (21-31); CHLORIDE 107 mmol/L (97-110); CREATININE 1.48 mg/dl (0.61-1.24); Estimated GFR 48 mL/min (>60); GLUCOSE 227 mg/dl (70-220); POTASSIUM 3.6 mmol/L (3.5-5.1); SODIUM 138 mmol/L (135-144); TOTAL PROTEIN 5.6 g/dl (6.1-8.1)
[2018-08-05] MEDS: FOLIC ACID 1 MG TAB PO (08:19)
[2018-08-05] MEDS: CLOPIDOGREL 75 MG TAB PO (08:20)
[2018-08-05] MEDS: GABAPENTIN 300 MG CAP PO ×2 (08:20→12:53)
[2018-08-05] MEDS: AMLODIPINE 2.5 MG TAB PO (08:20)
[2018-08-05] MEDS: ASPIRIN (EC) 81 MG TAB PO (08:20)
[2018-08-05] MEDS: FLUTICASONE/VILANTEROL 100-25 INH (08:21)
[2018-08-05] MEDS: INSULIN ASPART [NOVOLOG] 3 ML PEN SC ×4 (08:28→12:56)
[2018-08-05] MEDS: HEPARIN 5,000 UNIT/1 ML VIAL SC (08:30)
[2018-08-05] MEDS: THIAMINE 100 MG TAB PO (08:30)
[2018-08-05] MEDS: MULTIVITAMINS THERAPEUTIC TAB PO (08:30)
[2018-08-05] MEDS: metFORMIN 500 MG TAB PO (08:32)
== END 2018-08-05 15:50 | disposition home or self-care (01) | DRG 683 ==
LOC: E/R 22:34 → 2NE 08-01 06:01
DX: N17.9 Acute kidney failure, unspecified (principal); E87.1 Hypo-osmolality and hyponatremia; E87.2 Acidosis; E11.65 Type 2 diabetes mellitus with hyperglycemia; E86.0 Dehydration; F10.129 Alcohol abuse with intoxication, unspecified; Y90.8 Blood alcohol level of 240 mg/100 ml or more; E87.6 Hypokalemia; I12.9 Hypertensive chronic kidney disease with stage 1 through stage 4 chronic kidney disease, or unspecified chronic kidney disease; E11.22 Type 2 diabetes mellitus with diabetic chronic kidney disease; N18.9 Chronic kidney disease, unspecified; Z91.14 Patient's other noncompliance with medication regimen; K21.9 Gastro-esophageal reflux disease without esophagitis; R10.84 Generalized abdominal pain; R11.2 Nausea with vomiting, unspecified; Z86.73 Personal history of transient ischemic attack (TIA), and cerebral infarction without residual deficits; K70.10 Alcoholic hepatitis without ascites
CPT/HCPCS: 36415; 71045; 80048; 80053; 80061; 80307; 81001; 82306; 82803; 82947; 82962; 83036; 83690; 83735; 84100; 84443; 85025; 87040-91; 87086; 96372; 96374; 97110; 97116; 97161; 97530; 99285-25

== ENCOUNTER 2018-08-09 11:14 | Inpatient (IN) | payer OTHER ==
[2018-08-09 13:29] LABS: ADD MAN DIFF? NO
[2018-08-09 13:33] LABS: BASOPHILS % 0.3 % (0.0-2.0); EOSINOPHILS # 0.1 10^3/ul (0.0-0.5); EOSINOPHILS % 0.4 % (0.0-7.0); HEMATOCRIT 31.2 % (42.0-52.0); HEMOGLOBIN 10.4 g/dl (14.0-18.0); LYMPHOCYTES # 1.6 10^3/ul (0.8-2.9); LYMPHOCYTES % 12.3 % (15.0-51.0); MEAN CORPUSCULAR HEMOGLOBIN 31.3 pg (29.0-33.0); MEAN CORPUSCULAR HGB CONC 33.3 g/dl (32.0-37.0); MEAN PLATELET VOLUME 9.6 fl (7.4-10.4); MONOCYTE # 0.9 10^3/ul (0.3-0.9); MONOCYTES % 6.8 % (0.0-11.0); NEUTROPHIL # 9.8 10^3/ul (1.6-7.5); NEUTROPHILS % 77.9 % (39.0-77.0); NUCLEATED RED BLOOD CELLS% 0.2 /100WBC (0.0-0.0); PLATELET COUNT 282 10^3/UL (140-415); RED BLOOD COUNT 3.32 10^6/ul (4.70-6.10); RED CELL DISTRIBUTION WIDTH 13.7 % (11.5-14.5); RETICULOCYTE COUNT # 0.097 X10^6 (0.020-0.110); RETICULOCYTE COUNT % 2.9 % (0.5-1.5); RETICULOCYTE RBC 3.32
[2018-08-09 13:33] LABS: WHITE BLOOD COUNT 12.6 10^3/ul (4.8-10.8)
[2018-08-09] MEDS: ONDANSETRON 4 MG INJ IV (13:38)
[2018-08-09] MEDS: morphine 4 MG/ML VIAL IV (13:38)
[2018-08-09] MEDS: SOD CHLORIDE 0.9% 1,000 ML IV (13:38)
[2018-08-09 13:54] LABS: IRON 70 ug/dl (35-150)
[2018-08-09 13:56] LABS: ALANINE AMINOTRANSFERASE 46 IU/L (13-69); ALBUMIN 2.9 g/dl (3.3-4.9); ALBUMIN/GLOBULIN RATIO 0.93; ALKALINE PHOSPHATASE 135 IU/L (42-121); AMYLASE 71 U/L (11-123); ANION GAP 8 (5-13); ASPARTATE AMINO TRANSFERASE 30 IU/L (15-46); BILIRUBIN,INDIRECT 0.1 mg/dl (0-1.1); BILIRUBIN,TOTAL 0.1 mg/dl (0.2-1.3); BLOOD UREA NITROGEN 15 mg/dl (7-20); CARBON DIOXIDE 23 mmol/L (21-31); CHLORIDE 109 mmol/L (97-110); CREATININE 1.21 mg/dl (0.61-1.24); Estimated GFR > 60 mL/min (>60); GLUCOSE 215 mg/dl (70-220); LACTATE DEHYDROGENASE 521 IU/L (313-618); LIPASE 131 U/L (23-300); POTASSIUM 4.1 mmol/L (3.5-5.1); SODIUM 140 mmol/L (135-144)
[2018-08-09 13:57] LABS: INR 0.94; PROTIME 12.7 Sec (11.9-14.9)
[2018-08-09 13:58] LABS: PARTIAL THROMBOPLASTIN TIME 26.8 Sec (23.0-35.0)
[2018-08-09 14:03] LABS: % IRON SATURATION 29 % SAT (22-52); TOTAL IRON BINDING CAPACITY 242 ug/dl (241-421)
[2018-08-09 14:25] LABS: AMMONIA 14 umol/l (9-30)
[2018-08-09 14:31] LABS: ETHANOL < 10.0 mg/dl (0-0)
[2018-08-09] MEDS: ASPIRIN 325 MG TAB PO (14:41)
[2018-08-09] MEDS: IODIXANOL LOCM 100 ML BTL (14:51)
[2018-08-09] MEDS: SOD CHLORIDE 0.9% 100 ML (14:51)
[2018-08-09] MEDS: MAGNESIUM SULFATE 2 GM, MULTIVITAMINS 10 ML, THIAMINE 100 MG, FOLIC ACID 1 MG in SOD CH... IV (15:38)
[2018-08-09] MEDS ORDERED: ONDANSETRON 4 MG INJ IV (16:30)
[2018-08-09] MEDS ORDERED: ACETAMINOPHEN 325 MG TAB PO ×2 (16:30→17:00)
[2018-08-09] MEDS ORDERED: SOD CHLORIDE 0.9% 1,000 ML IV (16:51)
[2018-08-09] MEDS ORDERED: NACL 0.9% 3 ML SYG IV (17:00)
[2018-08-09] MEDS: HYDROCODONE/APAP (5/325) TAB PO (17:00)
[2018-08-09] MEDS ORDERED: DEXTROSE 50% 50 ML SYRINGE IV ×2 (17:30)
[2018-08-09] MEDS ORDERED: GLUCOSE GEL 15 GRAM TUBE BUCCAL (17:30)
[2018-08-09] MEDS ORDERED: GLUCAGON 1 MG INJ IM (17:30)
[2018-08-09] MEDS ORDERED: ALBUTEROL/IPRATROPIUM (NEB) 3 ML AMP HHN (17:30)
[2018-08-09] MEDS ORDERED: GLUCOSE GEL 15 GRAM TUBE PO ×2 (17:30)
[2018-08-09] MEDS ORDERED: NITROGLYCERIN (SL) 0.4 MG TAB SL (17:30)
[2018-08-09 18:47] LABS: ADD MAN DIFF? NO
[2018-08-09 18:51] LABS: WHITE BLOOD COUNT 12.8 10^3/ul (4.8-10.8)
[2018-08-09 18:51] LABS: BASOPHIL # 0.1 10^3/ul (0.0-0.1); BASOPHILS % 0.4 % (0.0-2.0); EOSINOPHILS # 0.1 10^3/ul (0.0-0.5); EOSINOPHILS % 0.6 % (0.0-7.0); HEMATOCRIT 31.9 % (42.0-52.0); HEMOGLOBIN 10.5 g/dl (14.0-18.0); LYMPHOCYTES # 1.5 10^3/ul (0.8-2.9); LYMPHOCYTES % 11.9 % (15.0-51.0); MEAN CORPUSCULAR HEMOGLOBIN 31.3 pg (29.0-33.0); MEAN CORPUSCULAR HGB CONC 32.9 g/dl (32.0-37.0); MEAN CORPUSCULAR VOLUME 95.2 fl (82.0-101.0); MEAN PLATELET VOLUME 9.8 fl (7.4-10.4); MONOCYTE # 0.8 10^3/ul (0.3-0.9); MONOCYTES % 6.6 % (0.0-11.0); NEUTROPHILS % 78.5 % (39.0-77.0); PLATELET COUNT 310 10^3/UL (140-415); RED BLOOD COUNT 3.35 10^6/ul (4.70-6.10); RED CELL DISTRIBUTION WIDTH 14.1 % (11.5-14.5)
[2018-08-09 19:13] LABS: INR 0.96; PROTIME 12.9 Sec (11.9-14.9)
[2018-08-09 19:14] LABS: PARTIAL THROMBOPLASTIN TIME 27.7 Sec (23.0-35.0)
[2018-08-09 19:27] LABS: B-TYPE NATRIURETIC PEPTIDE 6660 PG/ML (0-125)
[2018-08-09 19:31] LABS: TROPONIN-I 0.977 ng/ml (0.000-0.120)
[2018-08-09] MEDS: ALBUTEROL/IPRATROPIUM (NEB) 3 ML AMP HHN (20:00)
[2018-08-09] MEDS: SUCRALFATE (100 MG/ML) 10ML CUP PO ×2 (21:00→21:31)
[2018-08-09] MEDS: morphine 2 MG INJ IV (21:21)
[2018-08-09] MEDS: CEFTRIAXONE 1 GM/50 ML (PMX) 50 ML IVPB (21:21)
[2018-08-09] MEDS: HEPARIN 1000 UNITS/ML 10 ML INJ IV (21:26)
[2018-08-09] MEDS: FAMOTIDINE 20 MG INJ IV (21:28)
[2018-08-09] MEDS: ATORVASTATIN 80 MG TAB PO (21:31)
[2018-08-09] MEDS: INSULIN ASPART [NOVOLOG] 3 ML PEN SC (22:16)
[2018-08-09] MEDS: INSULIN GLARGINE [LANTus] (100 UNITS/ML) SYG SC (22:17)
[2018-08-09 23:38] LABS: HEMATOCRIT 35.7 % (42.0-52.0); HEMOGLOBIN 11.3 g/dl (14.0-18.0)
[2018-08-10] MEDS: hydrALAzine 20 MG INJ IV (00:43)
[2018-08-10 00:55] LABS: TROPONIN-I 0.995 ng/ml (0.000-0.120)
[2018-08-10] MEDS: ACCU-CHEK XX (02:00)
[2018-08-10 02:20] LABS: AADO2 Arterial 143.7 mmHg (7.0-24.0); Allen Test ACCEPTAB; Arterial Base Excess -5.3 mmol/L (-3.0-3); Arterial Blood Gas Oxygen Sat 98.8 mmHG (95.0-98.0); Arterial COHb 0.2 % (0.0-3.0); Arterial Fraction of Oxyhgb 98.3 % (93.0-99.0); Arterial HCO3 17.3 mmol/L (22.0-26.0); Arterial MetHb 0.3 % (0.0-1.5); Arterial pCO2 25.8 mmhg (35-45); MODE MASK - BIPAP; Site Right Radial
[2018-08-10] MEDS: IPRATROPIUM (NEB) 0.5 MG/2.5 ML AMP HHN ×4 (02:25→22:54)
[2018-08-10] MEDS: LEVALBUTEROL (NEB) 0.63 MG/3 ML AMP HHN ×4 (02:26→22:54)
[2018-08-10] MEDS: morphine 2 MG INJ IV ×3 (02:31→19:49)
[2018-08-10 04:05] LABS: ADD MAN DIFF? NO
[2018-08-10 04:07] LABS: WHITE BLOOD COUNT 14.1 10^3/ul (4.8-10.8)
[2018-08-10 04:07] LABS: BASOPHIL # 0.1 10^3/ul (0.0-0.1); BASOPHILS % 0.4 % (0.0-2.0); EOSINOPHILS # 0.1 10^3/ul (0.0-0.5); EOSINOPHILS % 0.6 % (0.0-7.0); HEMATOCRIT 31.6 % (42.0-52.0); HEMOGLOBIN 10.3 g/dl (14.0-18.0); LYMPHOCYTES # 1.6 10^3/ul (0.8-2.9); MEAN CORPUSCULAR HGB CONC 32.6 g/dl (32.0-37.0); MEAN CORPUSCULAR VOLUME 95.2 fl (82.0-101.0); MEAN PLATELET VOLUME 9.6 fl (7.4-10.4); MONOCYTES % 7.1 % (0.0-11.0); NEUTROPHIL # 11.2 10^3/ul (1.6-7.5); NEUTROPHILS % 79.3 % (39.0-77.0); PLATELET COUNT 343 10^3/UL (140-415); RED BLOOD COUNT 3.32 10^6/ul (4.70-6.10); RED CELL DISTRIBUTION WIDTH 14.2 % (11.5-14.5)
[2018-08-10 04:29] LABS: ALANINE AMINOTRANSFERASE 47 IU/L (13-69); ALBUMIN 2.9 g/dl (3.3-4.9); ALKALINE PHOSPHATASE 139 IU/L (42-121); ANION GAP 5 (5-13); ASPARTATE AMINO TRANSFERASE 25 IU/L (15-46); BILIRUBIN,INDIRECT 0.1 mg/dl (0-1.1); BILIRUBIN,TOTAL 0.1 mg/dl (0.2-1.3); BLOOD UREA NITROGEN 12 mg/dl (7-20); CALCIUM 8.5 mg/dl (8.4-10.2); CARBON DIOXIDE 22 mmol/L (21-31); CHLORIDE 111 mmol/L (97-110); CHOL/HDL RATIO 3.8 RATIO; CHOLESTEROL 105 mg/dl (100-200); CREATININE 1.14 mg/dl (0.61-1.24); Estimated GFR > 60 mL/min (>60); GLUCOSE 165 mg/dl (70-220); HDL CHOLESTEROL 27 mg/dl (30-78); LDL CHOLESTEROL,CALCULATED 31 mg/dl; MAGNESIUM 2.1 mg/dl (1.7-2.5); POTASSIUM 4.4 mmol/L (3.5-5.1); SODIUM 138 mmol/L (135-144); TOTAL PROTEIN 6.1 g/dl (6.1-8.1); TRIGLYCERIDES 236 mg/dl (0-149)
[2018-08-10 04:29] LABS: PARTIAL THROMBOPLASTIN TIME 30.8 Sec (23.0-35.0)
[2018-08-10 05:03] LABS: HEMOGLOBIN A1C 10.7 % (0-5.9)
[2018-08-10] MEDS: FAMOTIDINE 20 MG INJ IV ×2 (05:35→17:05)
[2018-08-10] MEDS: HEPARIN 1000 UNITS/ML 10 ML INJ IV ×2 (06:20→20:46)
[2018-08-10] MEDS: HEPARIN 25000 UNITS/250 ML 250 ML IV ×4 (06:27→20:46)
[2018-08-10] MEDS: INSULIN ASPART [NOVOLOG] 3 ML PEN SC ×4 (07:43→20:20)
[2018-08-10] MEDS: HYDROCODONE/APAP (5/325) TAB PO (08:08)
[2018-08-10] MEDS: ASPIRIN 81 MG TAB PO (09:27)
[2018-08-10] MEDS: SUCRALFATE (100 MG/ML) 10ML CUP PO ×4 (09:27→20:10)
[2018-08-10] MEDS: ACET/BUTAL/CAFF TAB PO (11:08)
[2018-08-10 11:45] LABS: PARTIAL THROMBOPLASTIN TIME 69.4 Sec (23.0-35.0)
[2018-08-10] MEDS: FUROSEMIDE 20 MG INJ IV ×2 (12:44→13:05)
[2018-08-10] MEDS ORDERED: FUROSEMIDE 40 MG INJ IV (13:00)
[2018-08-10] MEDS: ISOSORBIDE MONONITRATE(SR)30 MG TAB PO (13:04)
[2018-08-10 14:08] LABS: ADD UMIC YES; UR ASCORBIC ACID NEGATIVE (NEGATIVE); UR BILIRUBIN (Dip) NEGATIVE (NEGATIVE); UR BLOOD (Dip) NEGATIVE (NEGATIVE); UR CLARITY CLEAR (CLEAR); UR COLOR YELLOW (YELLOW); UR GLUCOSE (Dip) 2+ mg/dL (NEGATIVE); UR KETONES (Dip) NEGATIVE (NEGATIVE); UR LEUKOCYTE ESTERASE (Dip) NEGATIVE Leu/ul (NEGATIVE); UR NITRITE (Dip) NEGATIVE (NEGATIVE); UR RBC 3 /HPF (0-5); UR SPECIFIC GRAVITY (Dip) 1.013 (1.003-1.030); UR TOTAL PROTEIN (Dip) 2+ mg/dl (NEGATIVE); UR UROBILINOGEN (Dip) NEGATIVE (NEGATIVE); UR WBC 1 /HPF (0-5)
[2018-08-10 14:12] LABS: CK-MB 4.62 ng/ml (0.0-2.4); TROPONIN-I 0.771 ng/ml (0.000-0.120)
[2018-08-10 14:33] LABS: AMPHETAMINE/METHAMPHETAMINE NEGATIVE (NEGATIVE)
[2018-08-10 14:34] LABS: BARBITURATES POSITIVE (NEGATIVE); BENZODIAZEPINES POSITIVE (NEGATIVE); CANNABINOIDS NEGATIVE (NEGATIVE); COCAINE NEGATIVE (NEGATIVE); OPIATES POSITIVE (NEGATIVE)
[2018-08-10 15:08] LABS: CK INDEX 4.4; CREATINE KINASE 106 IU/L (23-200)
[2018-08-10 20:00] LABS: PARTIAL THROMBOPLASTIN TIME 45.8 Sec (23.0-35.0)
[2018-08-10] MEDS: ATORVASTATIN 80 MG TAB PO (20:09)
[2018-08-10] MEDS: METOPROLOL 25 MG TAB PO (20:10)
[2018-08-10] MEDS: INSULIN GLARGINE [LANTus] (100 UNITS/ML) SYG SC (20:20)
[2018-08-10] MEDS ORDERED: METOPROLOL 25 MG TAB PO (21:00)
[2018-08-11] MEDS: ACCU-CHEK XX (02:02)
[2018-08-11] MEDS: morphine 2 MG INJ IV ×2 (02:44→07:05)
[2018-08-11] MEDS: IPRATROPIUM (NEB) 0.5 MG/2.5 ML AMP HHN ×4 (03:25→23:28)
[2018-08-11] MEDS: LEVALBUTEROL (NEB) 0.63 MG/3 ML AMP HHN ×4 (03:25→20:00)
[2018-08-11 04:02] LABS: PARTIAL THROMBOPLASTIN TIME 42.3 Sec (23.0-35.0)
[2018-08-11] MEDS: FAMOTIDINE 20 MG INJ IV ×2 (06:41→17:43)
[2018-08-11 06:48] LABS: ADD MAN DIFF? NO
[2018-08-11 06:53] LABS: WHITE BLOOD COUNT 9.8 10^3/ul (4.8-10.8)
[2018-08-11 06:53] LABS: BASOPHIL # 0.1 10^3/ul (0.0-0.1); BASOPHILS % 0.5 % (0.0-2.0); EOSINOPHILS # 0.1 10^3/ul (0.0-0.5); EOSINOPHILS % 1.4 % (0.0-7.0); HEMATOCRIT 30.1 % (42.0-52.0); HEMOGLOBIN 9.7 g/dl (14.0-18.0); LYMPHOCYTES # 1.7 10^3/ul (0.8-2.9); LYMPHOCYTES % 17.4 % (15.0-51.0); MEAN CORPUSCULAR HEMOGLOBIN 30.3 pg (29.0-33.0); MEAN CORPUSCULAR HGB CONC 32.2 g/dl (32.0-37.0); MEAN CORPUSCULAR VOLUME 94.1 fl (82.0-101.0); MEAN PLATELET VOLUME 9.9 fl (7.4-10.4); MONOCYTE # 0.7 10^3/ul (0.3-0.9); MONOCYTES % 7.3 % (0.0-11.0); NEUTROPHIL # 7.1 10^3/ul (1.6-7.5); NEUTROPHILS % 72.3 % (39.0-77.0); NUCLEATED RED BLOOD CELLS% 0.2 /100WBC (0.0-0.0); PLATELET COUNT 361 10^3/UL (140-415); RED CELL DISTRIBUTION WIDTH 13.8 % (11.5-14.5)
[2018-08-11 07:27] LABS: PHOSPHORUS 3.8 mg/dl (2.5-4.9)
[2018-08-11 07:29] LABS: ANION GAP 6 (5-13); BLOOD UREA NITROGEN 14 mg/dl (7-20); CALCIUM 8.3 mg/dl (8.4-10.2); CARBON DIOXIDE 25 mmol/L (21-31); CHLORIDE 106 mmol/L (97-110); CREATININE 1.13 mg/dl (0.61-1.24); Estimated GFR > 60 mL/min (>60); GLUCOSE 211 mg/dl (70-220); POTASSIUM 4.2 mmol/L (3.5-5.1); SODIUM 137 mmol/L (135-144)
[2018-08-11 07:51] LABS: TROPONIN-I 0.455 ng/ml (0.000-0.120)
[2018-08-11] MEDS: INSULIN ASPART [NOVOLOG] 3 ML PEN SC ×5 (08:06→21:46)
[2018-08-11] MEDS: ONDANSETRON 4 MG INJ IV (08:08)
[2018-08-11] MEDS: ASPIRIN 81 MG TAB PO (08:47)
[2018-08-11] MEDS: MULTIVITAMINS THERAPEUTIC TAB PO (08:47)
[2018-08-11] MEDS: SUCRALFATE (100 MG/ML) 10ML CUP PO ×4 (08:48→21:33)
[2018-08-11] MEDS: METOPROLOL 25 MG TAB PO ×2 (08:48→21:33)
[2018-08-11] MEDS: ISOSORBIDE MONONITRATE(SR)30 MG TAB PO (08:48)
[2018-08-11 12:28] LABS: PARTIAL THROMBOPLASTIN TIME 43.5 Sec (23.0-35.0)
[2018-08-11] MEDS ORDERED: HEPARIN 1000 UNITS/ML 10 ML INJ (12:35)
[2018-08-11] MEDS ORDERED: MIDAZOLAM 1 MG/ML 2 ML INJ (12:35)
[2018-08-11] MEDS ORDERED: FENTAnyl 50 MCG/ML VIAL (12:35)
[2018-08-11] MEDS ORDERED: IODIXANOL LOCM 100 ML BTL ×3 (12:35→14:11)
[2018-08-11] MEDS ORDERED: LIDOCAINE 1% (MDV) 20 ML INJ (12:35)
[2018-08-11] MEDS ORDERED: VERAPAMIL 5 MG INJ (12:35)
[2018-08-11] MEDS ORDERED: NITROGLYCERIN (IC) 100 MCG/ML INJ ×2 (12:36→13:40)
[2018-08-11] MEDS ORDERED: BIVALIRUDIN 250MG /NS 50 ML 50 ML IVPB (14:11)
[2018-08-11 14:27] LABS: TRANSFERRIN 174 mg/dL (188-341)
[2018-08-11] MEDS: hydrALAzine 20 MG INJ IV (15:54)
[2018-08-11] MEDS: CEFAZOLIN 2 GM/50 ML (PMX) 50 ML IVPB (17:00)
[2018-08-11] MEDS: FUROSEMIDE 20 MG INJ IV (17:43)
[2018-08-11] MEDS: LORAZEPAM 2 MG INJ IV (18:49)
[2018-08-11] MEDS: ATORVASTATIN 80 MG TAB PO (21:33)
[2018-08-11] MEDS: INSULIN GLARGINE [LANTus] (100 UNITS/ML) SYG SC (21:47)
[2018-08-11] MEDS: LEVALBUTEROL (NEB) 1.25 MG/0.5 ML AMP HHN (23:28)
[2018-08-12] MEDS: traZODone 50 MG TAB PO (00:30)
[2018-08-12] MEDS: ACCU-CHEK XX ×4 (02:00→23:33)
[2018-08-12] MEDS: LEVALBUTEROL (NEB) 0.63 MG/3 ML AMP HHN ×4 (02:15→20:00)
[2018-08-12] MEDS: IPRATROPIUM (NEB) 0.5 MG/2.5 ML AMP HHN ×3 (02:15→14:20)
[2018-08-12] MEDS: FAMOTIDINE 20 MG INJ IV (06:39)
[2018-08-12] MEDS: FUROSEMIDE 20 MG INJ IV (06:39)
[2018-08-12] MEDS ORDERED: NITROGLYCERIN 50 MG/D5W 250 ML BTL (07:00)
[2018-08-12] MEDS ORDERED: DOPamine-D5W 1.6 MG/ML 250 ML (07:00)
[2018-08-12 07:37] LABS: ADD MAN DIFF? NO
[2018-08-12 07:39] LABS: BASOPHILS % 0.5 % (0.0-2.0); EOSINOPHILS # 0.1 10^3/ul (0.0-0.5); EOSINOPHILS % 1.1 % (0.0-7.0); HEMATOCRIT 29.5 % (42.0-52.0); HEMOGLOBIN 9.4 g/dl (14.0-18.0); LYMPHOCYTES # 1.5 10^3/ul (0.8-2.9); LYMPHOCYTES % 17.3 % (15.0-51.0); MEAN CORPUSCULAR HEMOGLOBIN 30.2 pg (29.0-33.0); MEAN CORPUSCULAR HGB CONC 31.9 g/dl (32.0-37.0); MEAN CORPUSCULAR VOLUME 94.9 fl (82.0-101.0); MEAN PLATELET VOLUME 9.5 fl (7.4-10.4); MONOCYTE # 0.6 10^3/ul (0.3-0.9); MONOCYTES % 6.7 % (0.0-11.0); NEUTROPHIL # 6.3 10^3/ul (1.6-7.5); NEUTROPHILS % 73.7 % (39.0-77.0); PLATELET COUNT 437 10^3/UL (140-415); RED BLOOD COUNT 3.11 10^6/ul (4.70-6.10); RED CELL DISTRIBUTION WIDTH 13.8 % (11.5-14.5)
[2018-08-12 07:39] LABS: WHITE BLOOD COUNT 8.5 10^3/ul (4.8-10.8)
[2018-08-12] MEDS: NORepinephrine 8MG/250 ML (PMX 250 ML IV (08:00)
[2018-08-12] MEDS: HEPARIN (10000 UNITS/ML) 10,000 UNIT, MILRINONE LACTATE 10 MG in SOD CHLORIDE 0.9% 1,00... SC (08:00)
[2018-08-12] MEDS: INSULIN HUMAN REGULAR 100 UNIT in SOD CHLORIDE 0.9% 99 ML IVPB (08:00)
[2018-08-12] MEDS: MILRINONE LACTATE 2 MG in SOD CHLORIDE 0.9% 50 ML IV (08:00)
[2018-08-12 08:01] LABS: ANION GAP 6 (5-13); BLOOD UREA NITROGEN 14 mg/dl (7-20); CALCIUM 8.9 mg/dl (8.4-10.2); CARBON DIOXIDE 28 mmol/L (21-31); CHLORIDE 104 mmol/L (97-110); CREATININE 1.33 mg/dl (0.61-1.24); Estimated GFR 54 mL/min (>60); GLUCOSE 224 mg/dl (70-220); POTASSIUM 4.1 mmol/L (3.5-5.1); SODIUM 138 mmol/L (135-144)
[2018-08-12 08:03] LABS: PHOSPHORUS 4.4 mg/dl (2.5-4.9)
[2018-08-12 08:03] LABS: MAGNESIUM 2.1 mg/dl (1.7-2.5)
[2018-08-12] MEDS: LEVALBUTEROL (NEB) 1.25 MG/0.5 ML AMP HHN (08:41)
[2018-08-12] MEDS: ASPIRIN 81 MG TAB PO (09:00)
[2018-08-12] MEDS: INSULIN ASPART [NOVOLOG] 3 ML PEN SC ×4 (09:07→11:50)
[2018-08-12] MEDS: MULTIVITAMINS THERAPEUTIC TAB PO (11:41)
[2018-08-12] MEDS: SUCRALFATE (100 MG/ML) 10ML CUP PO ×2 (11:41→13:00)
[2018-08-12] MEDS: METOPROLOL 25 MG TAB PO (11:42)
[2018-08-12] MEDS: ISOSORBIDE MONONITRATE(SR)30 MG TAB PO (11:42)
[2018-08-12] MEDS ORDERED: CEFAZOLIN 2 GM/50 ML (PMX) 50 ML IVPB (12:00)
[2018-08-12] MEDS: MEROPENEM 1 GM/50ML(PMX) 50 ML IVPB (12:33)
[2018-08-12 13:18] LABS: ADD UMIC YES; UR ASCORBIC ACID NEGATIVE (NEGATIVE); UR BILIRUBIN (Dip) NEGATIVE (NEGATIVE); UR BLOOD (Dip) NEGATIVE (NEGATIVE); UR CLARITY CLEAR (CLEAR); UR COLOR STRAW (YELLOW); UR GLUCOSE (Dip) 1+ mg/dL (NEGATIVE); UR KETONES (Dip) NEGATIVE (NEGATIVE); UR LEUKOCYTE ESTERASE (Dip) NEGATIVE Leu/ul (NEGATIVE); UR NITRITE (Dip) NEGATIVE (NEGATIVE); UR RBC 0 /HPF (0-5); UR SPECIFIC GRAVITY (Dip) 1.013 (1.003-1.030); UR TOTAL PROTEIN (Dip) 2+ mg/dl (NEGATIVE); UR UROBILINOGEN (Dip) NEGATIVE (NEGATIVE); UR WBC 0 /HPF (0-5)
[2018-08-12] MEDS: PHENYLephrine 20MG IN 250 ML 250 ML IV (14:00)
[2018-08-12] MEDS ORDERED: MIDAZOLAM 5 ML ×2 (15:03→20:15)
[2018-08-12] MEDS ORDERED: ALBUMIN HUMAN 25% 200 ML (15:10)
[2018-08-12] MEDS ORDERED: NORepinephrine 4 MG INJ (15:10)
[2018-08-12] MEDS ORDERED: CA CHLORIDE 10% 10 ML SYRINGE (15:10)
[2018-08-12] MEDS ORDERED: FUROSEMIDE 20 MG INJ ×3 (15:10→17:11)
[2018-08-12] MEDS ORDERED: POTASSIUM CHLORIDE 40 MEQ INJ (15:10)
[2018-08-12] MEDS ORDERED: AMINOCAPROIC ACID 5 GM INJ (15:10)
[2018-08-12] MEDS ORDERED: MAGNESIUM SULFATE (MG) 50% 10 ML INJ (15:10)
[2018-08-12] MEDS ORDERED: HEPARIN 1000 UNITS/ML 10 ML INJ ×5 (15:10→18:29)
[2018-08-12] MEDS ORDERED: LIDOCAINE 2% (SDV) 5 ML INJ ×2 (15:10→20:11)
[2018-08-12] MEDS ORDERED: PHENYLephrine 10 MG INJ (15:10)
[2018-08-12] MEDS ORDERED: MANNITOL 20% 500 ML (15:10)
[2018-08-12] MEDS ORDERED: NA BICARBONATE 8.4% 50 ML SYG (15:10)
[2018-08-12] MEDS ORDERED: CEFAZOLIN 1 GM INJ ×2 (16:12→18:04)
[2018-08-12] MEDS: PAPAVERINE 60 MG INJ (16:38)
[2018-08-12] MEDS: HEPARIN 1000 UNITS/ML 10 ML INJ (16:38)
[2018-08-12] MEDS: VANCOMYCIN 1 GM INJ (16:39)
[2018-08-12 16:58] LABS: IMMEDIATE SPIN CROSSMATCH 1 3
[2018-08-12] MEDS ORDERED: FUROSEMIDE 10 ML (18:00)
[2018-08-12] MEDS ORDERED: PROTAMINE 250 MG INJ (19:07)
[2018-08-12] MEDS ORDERED: PROVENTIL HFA 6.7GM INHALER (19:29)
[2018-08-12] MEDS ORDERED: ROCURONIUM 50 MG INJ (20:11)
[2018-08-12] MEDS ORDERED: ETOMIDATE 20 MG INJ (20:11)
[2018-08-12] MEDS ORDERED: DEXTROSE 50% 50 ML SYRINGE IV ×4 (20:30→21:00)
[2018-08-12] MEDS ORDERED: ONDANSETRON 4 MG INJ IV ×2 (20:30→21:00)
[2018-08-12] MEDS: ASPIRIN 600 MG SUPP PR (20:30)
[2018-08-12] MEDS ORDERED: MAGNESIUM SULFATE 1 GM/D5W 100 ML IVPB (20:30)
[2018-08-12] MEDS ORDERED: ACCU-CHEK XX (20:30)
[2018-08-12] MEDS: ASPIRIN (EC) 81 MG TAB PO (20:30)
[2018-08-12 20:56] LABS: ADD MAN DIFF? NO
[2018-08-12 20:57] LABS: BASOPHIL # 0.1 10^3/ul (0.0-0.1); BASOPHILS % 0.4 % (0.0-2.0); EOSINOPHILS # 0.1 10^3/ul (0.0-0.5); EOSINOPHILS % 0.5 % (0.0-7.0); HEMATOCRIT 30.7 % (42.0-52.0); LYMPHOCYTES # 1.7 10^3/ul (0.8-2.9); LYMPHOCYTES % 8.6 % (15.0-51.0); MEAN CORPUSCULAR HEMOGLOBIN 30.2 pg (29.0-33.0); MEAN CORPUSCULAR HGB CONC 32.6 g/dl (32.0-37.0); MEAN CORPUSCULAR VOLUME 92.7 fl (82.0-101.0); MEAN PLATELET VOLUME 9.6 fl (7.4-10.4); MONOCYTE # 0.4 10^3/ul (0.3-0.9); MONOCYTES % 1.9 % (0.0-11.0); NEUTROPHIL # 16.9 10^3/ul (1.6-7.5); NEUTROPHILS % 87.5 % (39.0-77.0); PLATELET COUNT 273 10^3/UL (140-415); RED BLOOD COUNT 3.31 10^6/ul (4.70-6.10); RED CELL DISTRIBUTION WIDTH 14.1 % (11.5-14.5)
[2018-08-12 20:57] LABS: WHITE BLOOD COUNT 19.3 10^3/ul (4.8-10.8)
[2018-08-12] MEDS: EPINEPHrine 4 MG in DEXTROSE 5% 246 ML IV (21:00)
[2018-08-12] MEDS ORDERED: ALBUTEROL 0.083% (NEB) 2.5 MG/3 ML AMP HHN (21:00)
[2018-08-12] MEDS: FAMOTIDINE 20 MG TAB PO (21:00)
[2018-08-12] MEDS ORDERED: morphine (1 MG/ML) 10ML SYRINGE IV ×2 (21:00)
[2018-08-12] MEDS ORDERED: NITROGLYCERIN 50 MG/D5W (PMX) 250 ML IV (21:00)
[2018-08-12] MEDS ORDERED: DOPamine-D5W 1.6 MG/ML 250 ML IV (21:00)
[2018-08-12] MEDS ORDERED: DIPHENHYDRAMINE 50 MG INJ IV (21:00)
[2018-08-12] MEDS ORDERED: MEPERIDINE 25 MG INJ IV (21:00)
[2018-08-12] MEDS ORDERED: MIDAZOLAM 1 MG/ML 2 ML INJ IV (21:00)
[2018-08-12] MEDS ORDERED: LORAZEPAM 2 MG INJ IV (21:00)
[2018-08-12] MEDS: ENOXAPARIN 40 MG/0.4 ML SYG SC (21:00)
[2018-08-12] MEDS ORDERED: INSULIN HUMAN REGULAR 100 UNIT in SOD CHLORIDE 0.9% 99 ML IV (21:00)
[2018-08-12] MEDS: ATORVASTATIN 80 MG TAB PO (21:00)
[2018-08-12] MEDS ORDERED: PROPOFOL 100 ML (21:01)
[2018-08-12 21:09] LABS: MODE VENT - AC; MetHgb Mixed Venous 0.4 %; Mixed Venous COHb 0.3 %; Mixed Venous Fraction OxyHgb 73.8 %; Mixed Venous Oxygen Sat 74.3 mmHG (65.0-75.0); Mixed Venous Total Hemglobin 11.6 g/dl; Sample Type BLMV; Site VENOUS LINE
[2018-08-12 21:10] LABS: AADO2 Arterial 570.4 mmHg (7.0-24.0); Arterial Base Excess -7.4 mmol/L (-3.0-3); Arterial COHb 0.3 % (0.0-3.0); Arterial Fraction of Oxyhgb 96.3 % (93.0-99.0); Arterial HCO3 17.4 mmol/L (22.0-26.0); Arterial MetHb 0.4 % (0.0-1.5); MODE VENT - AC; Site A-Line
[2018-08-12 21:20] LABS: PARTIAL THROMBOPLASTIN TIME 26.7 Sec (23.0-35.0)
[2018-08-12 21:30] LABS: PROTIME 17.3 Sec (11.9-14.9); PT RATIO 1.4
[2018-08-12 21:38] LABS: ANION GAP 10 (5-13); BLOOD UREA NITROGEN 16 mg/dl (7-20); CALCIUM 8.5 mg/dl (8.4-10.2); CARBON DIOXIDE 21 mmol/L (21-31); CHLORIDE 110 mmol/L (97-110); CREATININE 1.37 mg/dl (0.61-1.24); Estimated GFR 52 mL/min (>60); GLUCOSE 143 mg/dl (70-220); MAGNESIUM 3.5 mg/dl (1.7-2.5); POTASSIUM 3.8 mmol/L (3.5-5.1); SODIUM 141 mmol/L (135-144)
[2018-08-12] MEDS: CEFAZOLIN 1 GM/50 ML (PMX) 50 ML IVPB (21:47)
[2018-08-12] MEDS: PROPOFOL 100 ML IV (21:52)
[2018-08-12] MEDS ORDERED: FAMOTIDINE 20 MG INJ (21:56)
[2018-08-12] MEDS ORDERED: MILRINONE LACTATE (22:06)
[2018-08-12] MEDS: POTASSIUM CHLORIDE 40 MEQ, CALCIUM CHLORIDE 10% 1 GM in DEXTROSE 5%-0.225% NACL 1,000 ML IV (22:13)
[2018-08-12] MEDS: DOPamine-D5W 1.6 MG/ML 250 ML IV (22:13)
[2018-08-12] MEDS: NITROGLYCERIN 50 MG/D5W (PMX) 250 ML IV (22:15)
[2018-08-12] MEDS ORDERED: MILRINONE LACTATE 100 ML IV (22:30)
[2018-08-12] MEDS: POTASSIUM CHLORIDE 50 ML IVPB ×2 (22:55→23:55)
[2018-08-12] MEDS ORDERED: POTASSIUM CHLORIDE 50 ML IVPB (23:00)
[2018-08-12] MEDS: INSULIN HUMAN REGULAR 100 UNIT in SOD CHLORIDE 0.9% 99 ML IV (23:04)
[2018-08-13] MEDS: ACCU-CHEK XX ×24 (00:59→23:01)
[2018-08-13] MEDS: POTASSIUM CHLORIDE 50 ML IVPB (01:31)
[2018-08-13] MEDS: LEVALBUTEROL (NEB) 0.63 MG/3 ML AMP HHN ×2 (02:00→08:05)
[2018-08-13] MEDS: HYDROmorphONE 0.5 MG/0.5 ML SYG IV ×5 (02:46→22:17)
[2018-08-13 03:40] LABS: ADD MAN DIFF? NO
[2018-08-13 04:02] LABS: ANION GAP 6 (5-13); BLOOD UREA NITROGEN 18 mg/dl (7-20); CARBON DIOXIDE 23 mmol/L (21-31); CHLORIDE 112 mmol/L (97-110); CREATININE 1.73 mg/dl (0.61-1.24); Estimated GFR 40 mL/min (>60); GLUCOSE 171 mg/dl (70-220); POTASSIUM 4.6 mmol/L (3.5-5.1); SODIUM 141 mmol/L (135-144)
[2018-08-13 04:03] LABS: PHOSPHORUS 4.6 mg/dl (2.5-4.9)
[2018-08-13 04:04] LABS: INR 1.13; PROTIME 14.6 Sec (11.9-14.9); PT RATIO 1.1
[2018-08-13 04:05] LABS: PARTIAL THROMBOPLASTIN TIME 27.9 Sec (23.0-35.0)
[2018-08-13] MEDS: PROPOFOL 100 ML IV ×3 (04:07→22:28)
[2018-08-13 04:08] LABS: WHITE BLOOD COUNT 16.5 10^3/ul (4.8-10.8)
[2018-08-13 04:08] LABS: ABNORMAL IP MESSAGE 1; BASOPHIL # 0.1 10^3/ul (0.0-0.1); BASOPHILS % 0.4 % (0.0-2.0); EOSINOPHILS % 0.1 % (0.0-7.0); HEMATOCRIT 30.6 % (42.0-52.0); HEMOGLOBIN 10.2 g/dl (14.0-18.0); LYMPHOCYTES # 0.5 10^3/ul (0.8-2.9); MEAN CORPUSCULAR HEMOGLOBIN 30.7 pg (29.0-33.0); MEAN CORPUSCULAR HGB CONC 33.3 g/dl (32.0-37.0); MEAN CORPUSCULAR VOLUME 92.2 fl (82.0-101.0); MEAN PLATELET VOLUME 9.9 fl (7.4-10.4); MONOCYTE # 0.5 10^3/ul (0.3-0.9); NEUTROPHIL # 15.2 10^3/ul (1.6-7.5); NEUTROPHILS % 92.2 % (39.0-77.0); PLATELET COUNT 319 10^3/UL (140-415); POSITIVE DIFF @See below; RED BLOOD COUNT 3.32 10^6/ul (4.70-6.10); RED CELL DISTRIBUTION WIDTH 14.7 % (11.5-14.5)
[2018-08-13 04:10] LABS: POTASSIUM 4.6 mmol/L (3.5-5.1)
[2018-08-13] MEDS: CEFAZOLIN 1 GM/50 ML (PMX) 50 ML IVPB ×2 (04:57→13:38)
[2018-08-13 06:22] LABS: AADO2 Arterial 447.5 mmHg (7.0-24.0); Arterial Base Excess -4.7 mmol/L (-3.0-3); Arterial Blood Gas Oxygen Sat 95.4 mmHG (95.0-98.0); Arterial COHb 0.2 % (0.0-3.0); Arterial Fraction of Oxyhgb 94.9 % (93.0-99.0); Arterial HCO3 20.2 mmol/L (22.0-26.0); Arterial MetHb 0.3 % (0.0-1.5); Arterial pCO2 36.6 mmhg (35-45); MODE VENT - AC; Site A-Line
[2018-08-13] MEDS: DEXMEDETOMIDINE HCL 200 MCG in SOD CHLORIDE 0.9% 48 ML IV (08:28)
[2018-08-13] MEDS: FUROSEMIDE 100 MG INJ IV ×2 (08:49→17:03)
[2018-08-13] MEDS: FAMOTIDINE 20 MG INJ IV ×2 (08:55→20:22)
[2018-08-13] MEDS: ENOXAPARIN 40 MG/0.4 ML SYG SC ×3 (09:00→20:35)
[2018-08-13] MEDS: FAMOTIDINE 20 MG TAB PO ×2 (09:00→20:34)
[2018-08-13] MEDS ORDERED: LORAZEPAM 2 MG INJ (09:11)
[2018-08-13] MEDS: LORAZEPAM 2 MG INJ IV (09:28)
[2018-08-13] MEDS: ASPIRIN 325 MG TAB PO (10:37)
[2018-08-13] MEDS: FENTAnyl (DRIP) 1000 mcg/100mL 100 ML IV ×2 (10:40→18:41)
[2018-08-13] MEDS: LEVALBUTEROL (HFA) 15 GM INHALER INH ×2 (13:50→20:32)
[2018-08-13] MEDS ORDERED: PROPOFOL 100 ML (14:41)
[2018-08-13] MEDS: ACETAMINOPHEN 325 MG TAB PO (14:57)
[2018-08-13] MEDS ORDERED: MIDAZOLAM (DRIP) 50 mg/50 mL 50 ML IV (15:00)
[2018-08-13] MEDS: ALBUMIN HUMAN 5% 250 ML IV (15:54)
[2018-08-13] MEDS: INSULIN HUMAN REGULAR 100 UNIT in SOD CHLORIDE 0.9% 99 ML IV (19:29)
[2018-08-13 20:22] LABS: HEMATOCRIT 27.1 % (42.0-52.0)
[2018-08-13] MEDS: ATORVASTATIN 80 MG TAB PO (20:34)
[2018-08-13 20:46] LABS: POTASSIUM 3.9 mmol/L (3.5-5.1)
[2018-08-13 20:46] LABS: MAGNESIUM 2.8 mg/dl (1.7-2.5)
[2018-08-14] MEDS: ACCU-CHEK XX ×14 (00:59→13:22)
[2018-08-14] MEDS: LEVALBUTEROL (HFA) 15 GM INHALER INH ×2 (01:20→08:07)
[2018-08-14] MEDS: PROPOFOL 100 ML IV (02:52)
[2018-08-14] MEDS: FENTAnyl (DRIP) 1000 mcg/100mL 100 ML IV (03:47)
[2018-08-14 04:59] LABS: AADO2 Arterial 238.5 mmHg (7.0-24.0); Arterial Base Excess -2.9 mmol/L (-3.0-3); Arterial Blood Gas Oxygen Sat 94.3 mmHG (95.0-98.0); Arterial COHb 0.3 % (0.0-3.0); Arterial Fraction of Oxyhgb 93.8 % (93.0-99.0); Arterial HCO3 21.3 mmol/L (22.0-26.0); Arterial MetHb 0.2 % (0.0-1.5); Arterial pCO2 35.3 mmhg (35-45); MODE VENT - AC; Site A-Line
[2018-08-14 05:04] LABS: ADD MAN DIFF? NO
[2018-08-14 05:05] LABS: MODE VENT - AC; MetHgb Mixed Venous 0.4 %; Mixed Venous COHb 0.1 %; Mixed Venous Fraction OxyHgb 61.5 %; Mixed Venous Oxygen Sat 61.8 mmHG (65.0-75.0); Mixed Venous Total Hemglobin 12.7 g/dl; Sample Type BLMV; Site VENOUS LINE
[2018-08-14 05:15] LABS: WHITE BLOOD COUNT 14.9 10^3/ul (4.8-10.8)
[2018-08-14 05:15] LABS: BASOPHIL # 0.1 10^3/ul (0.0-0.1); BASOPHILS % 0.5 % (0.0-2.0); EOSINOPHILS # 0.1 10^3/ul (0.0-0.5); EOSINOPHILS % 0.6 % (0.0-7.0); HEMATOCRIT 26.7 % (42.0-52.0); HEMOGLOBIN 8.7 g/dl (14.0-18.0); LYMPHOCYTES # 1.3 10^3/ul (0.8-2.9); LYMPHOCYTES % 8.8 % (15.0-51.0); MEAN CORPUSCULAR HEMOGLOBIN 30.2 pg (29.0-33.0); MEAN CORPUSCULAR HGB CONC 32.6 g/dl (32.0-37.0); MEAN CORPUSCULAR VOLUME 92.7 fl (82.0-101.0); MEAN PLATELET VOLUME 10.2 fl (7.4-10.4); MONOCYTES % 6.9 % (0.0-11.0); NEUTROPHIL # 12.3 10^3/ul (1.6-7.5); NEUTROPHILS % 82.7 % (39.0-77.0); PLATELET COUNT 327 10^3/UL (140-415); RED BLOOD COUNT 2.88 10^6/ul (4.70-6.10)
[2018-08-14 05:27] LABS: ALANINE AMINOTRANSFERASE 32 IU/L (13-69); ALBUMIN 2.4 g/dl (3.3-4.9); ALBUMIN/GLOBULIN RATIO 0.92; ALKALINE PHOSPHATASE 59 IU/L (42-121); ANION GAP 6 (5-13); ASPARTATE AMINO TRANSFERASE 102 IU/L (15-46); BILIRUBIN,INDIRECT 0.1 mg/dl (0-1.1); BILIRUBIN,TOTAL 0.1 mg/dl (0.2-1.3); BLOOD UREA NITROGEN 22 mg/dl (7-20); CALCIUM 8.4 mg/dl (8.4-10.2); CARBON DIOXIDE 23 mmol/L (21-31); CHLORIDE 116 mmol/L (97-110); CREATININE 1.88 mg/dl (0.61-1.24); Estimated GFR 36 mL/min (>60); GLUCOSE 102 mg/dl (70-220); POTASSIUM 3.5 mmol/L (3.5-5.1); SODIUM 145 mmol/L (135-144)
[2018-08-14 05:32] LABS: MAGNESIUM 2.6 mg/dl (1.7-2.5)
[2018-08-14 05:32] LABS: PHOSPHORUS 6.5 mg/dl (2.5-4.9)
[2018-08-14] MEDS: POTASSIUM CHLORIDE 50 ML IVPB ×3 (05:45→09:53)
[2018-08-14] MEDS: FUROSEMIDE 100 MG INJ IV (05:53)
[2018-08-14] MEDS: ACETAMINOPHEN 650MG/20.3ML CUP NGT (06:00)
[2018-08-14] MEDS: ASPIRIN 325 MG TAB PO (08:47)
[2018-08-14] MEDS: FAMOTIDINE 20 MG TAB PO (08:47)
[2018-08-14] MEDS: FAMOTIDINE 20 MG INJ IV ×2 (08:47→20:40)
[2018-08-14] MEDS: ENOXAPARIN 40 MG/0.4 ML SYG SC ×2 (08:48→20:42)
[2018-08-14] MEDS: HYDROmorphONE 0.5 MG/0.5 ML SYG IV ×2 (08:57→21:37)
[2018-08-14] MEDS ORDERED: LORAZEPAM 2 MG INJ IV (11:30)
[2018-08-14] MEDS ORDERED: PHENYLephrine 80 MG in DEXTROSE 5% 242 ML IV (11:30)
[2018-08-14] MEDS ORDERED: hydrALAzine 20 MG INJ IV (11:30)
[2018-08-14] MEDS: INSULIN ASPART [NOVOLOG] 3 ML PEN SC ×5 (13:24→20:44)
[2018-08-14] MEDS: INSULIN GLARGINE [LANTus] (100 UNITS/ML) SYG SC (13:26)
[2018-08-14] MEDS: METOPROLOL 50 MG TAB PO ×2 (16:11→23:23)
[2018-08-14] MEDS: FUROSEMIDE 40 MG INJ IV (17:14)
[2018-08-14] MEDS: ATORVASTATIN 80 MG TAB PO (20:40)
[2018-08-14] MEDS: OXYCODONE/ACETAMINOPHEN (5/325) TAB PO (20:41)
[2018-08-14] MEDS: BALSAM PERU/CASTOR OIL 60 GM TUBE TOP (21:37)
[2018-08-15 05:25] LABS: ADD MAN DIFF? NO
[2018-08-15 05:29] LABS: WHITE BLOOD COUNT 18.6 10^3/ul (4.8-10.8)
[2018-08-15 05:29] LABS: BASOPHIL # 0.1 10^3/ul (0.0-0.1); BASOPHILS % 0.6 % (0.0-2.0); EOSINOPHILS # 0.2 10^3/ul (0.0-0.5); EOSINOPHILS % 1.1 % (0.0-7.0); HEMATOCRIT 27.5 % (42.0-52.0); HEMOGLOBIN 8.7 g/dl (14.0-18.0); LYMPHOCYTES # 1.6 10^3/ul (0.8-2.9); LYMPHOCYTES % 8.5 % (15.0-51.0); MEAN CORPUSCULAR HEMOGLOBIN 30.3 pg (29.0-33.0); MEAN CORPUSCULAR HGB CONC 31.6 g/dl (32.0-37.0); MEAN CORPUSCULAR VOLUME 95.8 fl (82.0-101.0); MEAN PLATELET VOLUME 10.1 fl (7.4-10.4); MONOCYTE # 1.3 10^3/ul (0.3-0.9); NEUTROPHIL # 15.2 10^3/ul (1.6-7.5); NEUTROPHILS % 82.1 % (39.0-77.0); PLATELET COUNT 416 10^3/UL (140-415); RED BLOOD COUNT 2.87 10^6/ul (4.70-6.10); RED CELL DISTRIBUTION WIDTH 14.8 % (11.5-14.5)
[2018-08-15 05:49] LABS: MAGNESIUM 2.6 mg/dl (1.7-2.5)
[2018-08-15 05:49] LABS: PHOSPHORUS 4.1 mg/dl (2.5-4.9)
[2018-08-15 05:56] LABS: ANION GAP 8 (5-13); BLOOD UREA NITROGEN 24 mg/dl (7-20); CALCIUM 8.7 mg/dl (8.4-10.2); CARBON DIOXIDE 25 mmol/L (21-31); CHLORIDE 113 mmol/L (97-110); CREATININE 1.61 mg/dl (0.61-1.24); Estimated GFR 44 mL/min (>60); GLUCOSE 113 mg/dl (70-220); POTASSIUM 3.8 mmol/L (3.5-5.1); SODIUM 146 mmol/L (135-144)
[2018-08-15] MEDS: FUROSEMIDE 40 MG INJ IV ×2 (06:02→18:12)
[2018-08-15] MEDS: BALSAM PERU/CASTOR OIL 60 GM TUBE TOP ×2 (08:04→20:14)
[2018-08-15] MEDS: METOPROLOL 50 MG TAB PO ×2 (08:04→20:11)
[2018-08-15] MEDS: ASPIRIN 325 MG TAB PO (08:04)
[2018-08-15] MEDS: ENOXAPARIN 40 MG/0.4 ML SYG SC ×2 (08:06→20:48)
[2018-08-15] MEDS: INSULIN GLARGINE [LANTus] (100 UNITS/ML) SYG SC (08:07)
[2018-08-15] MEDS: INSULIN ASPART [NOVOLOG] 3 ML PEN SC ×7 (08:08→20:48)
[2018-08-15] MEDS: FAMOTIDINE 20 MG INJ IV ×2 (08:14→20:11)
[2018-08-15] MEDS: HYDROmorphONE 0.5 MG/0.5 ML SYG IV ×3 (10:09→20:32)
[2018-08-15] MEDS: POTASSIUM CHLORIDE (SR) 20 MEQ TAB PO (11:11)
[2018-08-15 11:57] LABS: PROCALCITONIN 0.25 ng/mL (0.00-0.10)
[2018-08-15 11:58] LABS: ADD UMIC YES; UR ASCORBIC ACID NEGATIVE (NEGATIVE); UR BILIRUBIN (Dip) NEGATIVE (NEGATIVE); UR BLOOD (Dip) 2+ mg/dL (NEGATIVE); UR CLARITY CLEAR (CLEAR); UR COLOR YELLOW (YELLOW); UR GLUCOSE (Dip) 1+ mg/dL (NEGATIVE); UR KETONES (Dip) 1+ mg/dL (NEGATIVE); UR LEUKOCYTE ESTERASE (Dip) NEGATIVE Leu/ul (NEGATIVE); UR MUCUS FEW /HPF (NONE SEEN); UR NITRITE (Dip) NEGATIVE (NEGATIVE); UR RBC 11 /HPF (0-5); UR SPECIFIC GRAVITY (Dip) 1.013 (1.003-1.030); UR TOTAL PROTEIN (Dip) 2+ mg/dl (NEGATIVE); UR UROBILINOGEN (Dip) NEGATIVE (NEGATIVE); UR WBC 1 /HPF (0-5)
[2018-08-15] MEDS: PIPER-TAZO 3.375 GM IV (PMX) 100 ML IVPB ×3 (12:06→23:27)
[2018-08-15] MEDS: ATORVASTATIN 80 MG TAB PO (20:10)
[2018-08-15] MEDS: ACETAMINOPHEN 325 MG TAB PO (20:11)
[2018-08-16] MEDS: HYDROmorphONE 0.5 MG/0.5 ML SYG IV ×2 (02:06→11:19)
[2018-08-16] MEDS: PIPER-TAZO 3.375 GM IV (PMX) 100 ML IVPB ×4 (05:29→23:33)
[2018-08-16] MEDS: FUROSEMIDE 40 MG INJ IV ×2 (05:30→17:11)
[2018-08-16 06:08] LABS: ADD MAN DIFF? NO
[2018-08-16 06:16] LABS: BASOPHIL # 0.1 10^3/ul (0.0-0.1); BASOPHILS % 0.8 % (0.0-2.0); EOSINOPHILS # 0.4 10^3/ul (0.0-0.5); HEMATOCRIT 28.4 % (42.0-52.0); LYMPHOCYTES # 1.8 10^3/ul (0.8-2.9); LYMPHOCYTES % 12.8 % (15.0-51.0); MEAN CORPUSCULAR HEMOGLOBIN 30.2 pg (29.0-33.0); MEAN CORPUSCULAR HGB CONC 31.7 g/dl (32.0-37.0); MEAN CORPUSCULAR VOLUME 95.3 fl (82.0-101.0); MEAN PLATELET VOLUME 9.9 fl (7.4-10.4); MONOCYTES % 6.8 % (0.0-11.0); NEUTROPHIL # 10.9 10^3/ul (1.6-7.5); NEUTROPHILS % 75.8 % (39.0-77.0); PLATELET COUNT 495 10^3/UL (140-415); RED BLOOD COUNT 2.98 10^6/ul (4.70-6.10); RED CELL DISTRIBUTION WIDTH 14.3 % (11.5-14.5)
[2018-08-16 06:16] LABS: WHITE BLOOD COUNT 14.4 10^3/ul (4.8-10.8)
[2018-08-16 06:50] LABS: ANION GAP 7 (5-13); BLOOD UREA NITROGEN 23 mg/dl (7-20); CALCIUM 7.9 mg/dl (8.4-10.2); CARBON DIOXIDE 26 mmol/L (21-31); CHLORIDE 106 mmol/L (97-110); CREATININE 1.44 mg/dl (0.61-1.24); Estimated GFR 50 mL/min (>60); GLUCOSE 266 mg/dl (70-220); MAGNESIUM 2.1 mg/dl (1.7-2.5); PHOSPHORUS 3.4 mg/dl (2.5-4.9); POTASSIUM 3.6 mmol/L (3.5-5.1); SODIUM 139 mmol/L (135-144)
[2018-08-16] MEDS: INSULIN ASPART [NOVOLOG] 3 ML PEN SC ×8 (07:42→21:15)
[2018-08-16] MEDS: INSULIN GLARGINE [LANTus] (100 UNITS/ML) SYG SC (07:42)
[2018-08-16] MEDS: ASPIRIN 325 MG TAB PO (08:49)
[2018-08-16] MEDS: FAMOTIDINE 20 MG INJ IV (08:50)
[2018-08-16] MEDS: BALSAM PERU/CASTOR OIL 60 GM TUBE TOP ×2 (08:50→20:43)
[2018-08-16] MEDS: METOPROLOL 50 MG TAB PO ×2 (08:50→20:44)
[2018-08-16] MEDS: OXYCODONE/ACETAMINOPHEN (5/325) TAB PO ×2 (08:58→20:59)
[2018-08-16] MEDS: ENOXAPARIN 40 MG/0.4 ML SYG SC ×2 (09:00→21:15)
[2018-08-16] MEDS: GABAPENTIN 300 MG CAP PO ×2 (12:13→20:43)
[2018-08-16] MEDS ORDERED: INSULIN ASPART [NOVOLOG] 3 ML PEN SC (17:55)
[2018-08-16 19:46] LABS: ADD UMIC YES; UR ASCORBIC ACID NEGATIVE (NEGATIVE); UR BILIRUBIN (Dip) NEGATIVE (NEGATIVE); UR BLOOD (Dip) 2+ mg/dL (NEGATIVE); UR CLARITY CLEAR (CLEAR); UR COLOR STRAW (YELLOW); UR GLUCOSE (Dip) 1+ mg/dL (NEGATIVE); UR KETONES (Dip) NEGATIVE (NEGATIVE); UR LEUKOCYTE ESTERASE (Dip) TRACE Leu/ul (NEGATIVE); UR NITRITE (Dip) NEGATIVE (NEGATIVE); UR RBC 46 /HPF (0-5); UR SPECIFIC GRAVITY (Dip) 1.013 (1.003-1.030); UR TOTAL PROTEIN (Dip) 2+ mg/dl (NEGATIVE); UR UROBILINOGEN (Dip) NEGATIVE (NEGATIVE); UR WBC 4 /HPF (0-5)
[2018-08-16] MEDS: POTASSIUM CHLORIDE (SR) 20 MEQ TAB PO (20:43)
[2018-08-16] MEDS: ATORVASTATIN 80 MG TAB PO (20:43)
[2018-08-16] MEDS: FAMOTIDINE 20 MG TAB PO (20:43)
[2018-08-16] MEDS: ACCU-CHEK XX (23:55)
[2018-08-17] MEDS: INSULIN ASPART [NOVOLOG] 3 ML PEN SC ×8 (00:09→21:12)
[2018-08-17] MEDS: ACCU-CHEK XX (02:48)
[2018-08-17] MEDS: OXYCODONE/ACETAMINOPHEN (5/325) TAB PO ×3 (04:10→21:08)
[2018-08-17] MEDS: PIPER-TAZO 3.375 GM IV (PMX) 100 ML IVPB ×2 (05:39→12:34)
[2018-08-17] MEDS: FUROSEMIDE 40 MG INJ IV (05:39)
[2018-08-17 07:21] LABS: ADD MAN DIFF? NO
[2018-08-17 07:30] LABS: BASOPHIL # 0.1 10^3/ul (0.0-0.1); BASOPHILS % 0.9 % (0.0-2.0); EOSINOPHILS # 0.4 10^3/ul (0.0-0.5); EOSINOPHILS % 4.1 % (0.0-7.0); HEMATOCRIT 26.8 % (42.0-52.0); HEMOGLOBIN 8.4 g/dl (14.0-18.0); LYMPHOCYTES # 1.8 10^3/ul (0.8-2.9); LYMPHOCYTES % 18.5 % (15.0-51.0); MEAN CORPUSCULAR HEMOGLOBIN 29.6 pg (29.0-33.0); MEAN CORPUSCULAR HGB CONC 31.3 g/dl (32.0-37.0); MEAN CORPUSCULAR VOLUME 94.4 fl (82.0-101.0); MONOCYTE # 0.9 10^3/ul (0.3-0.9); MONOCYTES % 9.2 % (0.0-11.0); NEUTROPHIL # 6.6 10^3/ul (1.6-7.5); NEUTROPHILS % 66.4 % (39.0-77.0); PLATELET COUNT 510 10^3/UL (140-415); RED BLOOD COUNT 2.84 10^6/ul (4.70-6.10); RED CELL DISTRIBUTION WIDTH 13.9 % (11.5-14.5)
[2018-08-17 07:30] LABS: WHITE BLOOD COUNT 9.9 10^3/ul (4.8-10.8)
[2018-08-17] MEDS: FAMOTIDINE 20 MG TAB PO ×2 (08:07→20:59)
[2018-08-17] MEDS: ASPIRIN 325 MG TAB PO (08:07)
[2018-08-17] MEDS: GABAPENTIN 300 MG CAP PO ×3 (08:07→20:59)
[2018-08-17] MEDS: METOPROLOL 50 MG TAB PO ×2 (08:08→20:59)
[2018-08-17] MEDS: ENOXAPARIN 40 MG/0.4 ML SYG SC ×2 (08:12→21:12)
[2018-08-17] MEDS: INSULIN GLARGINE [LANTus] (100 UNITS/ML) SYG SC (08:13)
[2018-08-17 08:22] LABS: ALANINE AMINOTRANSFERASE 33 IU/L (13-69); ALBUMIN 2.2 g/dl (3.3-4.9); ALBUMIN/GLOBULIN RATIO 0.78; ALKALINE PHOSPHATASE 91 IU/L (42-121); ANION GAP 7 (5-13); ASPARTATE AMINO TRANSFERASE 23 IU/L (15-46); BILIRUBIN,INDIRECT 0.2 mg/dl (0-1.1); BILIRUBIN,TOTAL 0.2 mg/dl (0.2-1.3); BLOOD UREA NITROGEN 20 mg/dl (7-20); CALCIUM 7.6 mg/dl (8.4-10.2); CARBON DIOXIDE 27 mmol/L (21-31); CHLORIDE 104 mmol/L (97-110); CREATININE 1.41 mg/dl (0.61-1.24); Estimated GFR 51 mL/min (>60); GLUCOSE 179 mg/dl (70-220); POTASSIUM 4.1 mmol/L (3.5-5.1); SODIUM 138 mmol/L (135-144)
[2018-08-17 08:28] LABS: PROCALCITONIN 0.14 ng/mL (0.00-0.10)
[2018-08-17] MEDS: BALSAM PERU/CASTOR OIL 60 GM TUBE TOP ×2 (09:20→21:08)
[2018-08-17] MEDS: metFORMIN 500 MG TAB PO (18:50)
[2018-08-17] MEDS: LINAGLIPTIN 5 MG TABLET PO (18:50)
[2018-08-17] MEDS: ATORVASTATIN 80 MG TAB PO (20:59)
[2018-08-18] MEDS: INSULIN ASPART [NOVOLOG] 3 ML PEN SC ×7 (08:08→21:51)
[2018-08-18] MEDS: FAMOTIDINE 20 MG TAB PO ×2 (08:11→21:00)
[2018-08-18] MEDS: metFORMIN 500 MG TAB PO ×2 (08:11→17:21)
[2018-08-18] MEDS: BUMETANIDE 1 MG TAB PO (08:11)
[2018-08-18] MEDS: ASPIRIN 325 MG TAB PO (08:11)
[2018-08-18] MEDS: LINAGLIPTIN 5 MG TABLET PO (08:12)
[2018-08-18] MEDS: GABAPENTIN 300 MG CAP PO ×3 (08:12→20:59)
[2018-08-18] MEDS: METOPROLOL 50 MG TAB PO ×2 (08:12→21:03)
[2018-08-18] MEDS: BALSAM PERU/CASTOR OIL 60 GM TUBE TOP ×2 (08:12→22:14)
[2018-08-18] MEDS: ENOXAPARIN 40 MG/0.4 ML SYG SC (08:15)
[2018-08-18] MEDS: INSULIN GLARGINE [LANTus] (100 UNITS/ML) SYG SC ×2 (08:32→12:00)
[2018-08-18 08:36] LABS: ADD MAN DIFF? NO
[2018-08-18 08:39] LABS: WHITE BLOOD COUNT 9.3 10^3/ul (4.8-10.8)
[2018-08-18 08:39] LABS: BASOPHIL # 0.1 10^3/ul (0.0-0.1); BASOPHILS % 1.1 % (0.0-2.0); EOSINOPHILS # 0.4 10^3/ul (0.0-0.5); EOSINOPHILS % 4.4 % (0.0-7.0); HEMATOCRIT 28.1 % (42.0-52.0); HEMOGLOBIN 8.8 g/dl (14.0-18.0); LYMPHOCYTES # 1.9 10^3/ul (0.8-2.9); MEAN CORPUSCULAR HEMOGLOBIN 29.5 pg (29.0-33.0); MEAN CORPUSCULAR HGB CONC 31.3 g/dl (32.0-37.0); MEAN CORPUSCULAR VOLUME 94.3 fl (82.0-101.0); MEAN PLATELET VOLUME 9.8 fl (7.4-10.4); MONOCYTES % 10.4 % (0.0-11.0); NEUTROPHIL # 5.8 10^3/ul (1.6-7.5); NEUTROPHILS % 62.6 % (39.0-77.0); PLATELET COUNT 591 10^3/UL (140-415); RED BLOOD COUNT 2.98 10^6/ul (4.70-6.10); RED CELL DISTRIBUTION WIDTH 13.8 % (11.5-14.5)
[2018-08-18] MEDS: NITROFURANTOIN (SR) 100 MG CAP PO ×2 (08:45→21:00)
[2018-08-18 08:54] LABS: ANION GAP 4 (5-13); BLOOD UREA NITROGEN 18 mg/dl (7-20); CARBON DIOXIDE 30 mmol/L (21-31); CHLORIDE 103 mmol/L (97-110); CREATININE 1.24 mg/dl (0.61-1.24); Estimated GFR 59 mL/min (>60); GLUCOSE 211 mg/dl (70-220); SODIUM 137 mmol/L (135-144)
[2018-08-18] MEDS ORDERED: ALBUTEROL/IPRATROPIUM (NEB) 3 ML AMP HHN (11:00)
[2018-08-18] MEDS: ASPIRIN 81 MG TAB PO (12:00)
[2018-08-18] MEDS: CLOPIDOGREL 75 MG TAB PO (12:18)
[2018-08-18] MEDS: BUDESONIDE (NEB) 0.5MG/2ML AMP HHN ×2 (15:22→20:00)
[2018-08-18] MEDS: ALBUTEROL/IPRATROPIUM (NEB) 3 ML AMP HHN ×2 (15:36→21:27)
[2018-08-18] MEDS: OXYCODONE/ACETAMINOPHEN (5/325) TAB PO ×2 (17:42→22:15)
[2018-08-18] MEDS: ATORVASTATIN 80 MG TAB PO (21:00)
[2018-08-19] MEDS: INSULIN ASPART [NOVOLOG] 3 ML PEN SC ×7 (08:13→20:39)
[2018-08-19] MEDS: FAMOTIDINE 20 MG TAB PO ×2 (08:22→20:38)
[2018-08-19] MEDS: GABAPENTIN 300 MG CAP PO ×3 (08:22→20:40)
[2018-08-19] MEDS: LINAGLIPTIN 5 MG TABLET PO (08:22)
[2018-08-19] MEDS: metFORMIN 500 MG TAB PO ×2 (08:22→17:19)
[2018-08-19] MEDS: ASPIRIN 81 MG TAB PO (08:22)
[2018-08-19] MEDS: BUMETANIDE 1 MG TAB PO (08:22)
[2018-08-19] MEDS: CLOPIDOGREL 75 MG TAB PO (08:22)
[2018-08-19] MEDS: NITROFURANTOIN (SR) 100 MG CAP PO ×2 (08:22→20:37)
[2018-08-19] MEDS: METOPROLOL 50 MG TAB PO ×2 (08:23→20:38)
[2018-08-19] MEDS: BALSAM PERU/CASTOR OIL 60 GM TUBE TOP ×2 (08:24→20:41)
[2018-08-19] MEDS: ALBUTEROL/IPRATROPIUM (NEB) 3 ML AMP HHN ×3 (08:30→20:59)
[2018-08-19] MEDS: INSULIN GLARGINE [LANTus] (100 UNITS/ML) SYG SC (08:31)
[2018-08-19] MEDS: BUDESONIDE (NEB) 0.5MG/2ML AMP HHN ×2 (08:31→20:59)
[2018-08-19] MEDS: ENOXAPARIN 40 MG/0.4 ML SYG SC (08:31)
[2018-08-19 08:48] LABS: ADD MAN DIFF? NO
[2018-08-19 08:51] LABS: BASOPHIL # 0.1 10^3/ul (0.0-0.1); BASOPHILS % 1.1 % (0.0-2.0); EOSINOPHILS # 0.4 10^3/ul (0.0-0.5); EOSINOPHILS % 3.6 % (0.0-7.0); LYMPHOCYTES % 20.4 % (15.0-51.0); MEAN CORPUSCULAR HEMOGLOBIN 30.2 pg (29.0-33.0); MEAN CORPUSCULAR HGB CONC 32.1 g/dl (32.0-37.0); MEAN PLATELET VOLUME 9.7 fl (7.4-10.4); MONOCYTE # 0.9 10^3/ul (0.3-0.9); MONOCYTES % 9.7 % (0.0-11.0); NEUTROPHIL # 6.1 10^3/ul (1.6-7.5); NEUTROPHILS % 63.5 % (39.0-77.0); PLATELET COUNT 645 10^3/UL (140-415); RED BLOOD COUNT 2.98 10^6/ul (4.70-6.10); RED CELL DISTRIBUTION WIDTH 13.8 % (11.5-14.5)
[2018-08-19 08:51] LABS: WHITE BLOOD COUNT 9.6 10^3/ul (4.8-10.8)
[2018-08-19 09:15] LABS: ANION GAP 7 (5-13); BLOOD UREA NITROGEN 17 mg/dl (7-20); CALCIUM 8.2 mg/dl (8.4-10.2); CARBON DIOXIDE 27 mmol/L (21-31); CHLORIDE 104 mmol/L (97-110); CREATININE 1.17 mg/dl (0.61-1.24); Estimated GFR > 60 mL/min (>60); GLUCOSE 193 mg/dl (70-220); PHOSPHORUS 3.2 mg/dl (2.5-4.9); POTASSIUM 4.2 mmol/L (3.5-5.1); SODIUM 138 mmol/L (135-144)
[2018-08-19] MEDS: OXYCODONE/ACETAMINOPHEN (5/325) TAB PO ×2 (09:25→18:14)
[2018-08-19 13:51] LABS: Allen Test ACCEPTAB; Arterial Base Excess 0.1 mmol/L (-3.0-3); Arterial Blood Gas Oxygen Sat 94.5 mmHG (95.0-98.0); Arterial COHb 0.3 % (0.0-3.0); Arterial Fraction of Oxyhgb 94.1 % (93.0-99.0); Arterial HCO3 24.7 mmol/L (22.0-26.0); Arterial MetHb 0.1 % (0.0-1.5); Arterial pCO2 40.3 mmhg (35-45); MODE NASAL CANNULA; Site Right Radial
[2018-08-19] MEDS: ATORVASTATIN 80 MG TAB PO (20:38)
[2018-08-20] MEDS: OXYCODONE/ACETAMINOPHEN (5/325) TAB PO ×3 (05:41→20:13)
[2018-08-20] MEDS: ALBUTEROL/IPRATROPIUM (NEB) 3 ML AMP HHN ×3 (07:58→19:53)
[2018-08-20] MEDS: BUDESONIDE (NEB) 0.5MG/2ML AMP HHN ×2 (08:00→19:53)
[2018-08-20] MEDS: BUMETANIDE 1 MG TAB PO (08:08)
[2018-08-20] MEDS: ASPIRIN 81 MG TAB PO (08:08)
[2018-08-20] MEDS: NITROFURANTOIN (SR) 100 MG CAP PO ×2 (08:09→20:46)
[2018-08-20] MEDS: FAMOTIDINE 20 MG TAB PO ×2 (08:09→20:46)
[2018-08-20] MEDS: GABAPENTIN 300 MG CAP PO ×3 (08:10→20:46)
[2018-08-20] MEDS: CLOPIDOGREL 75 MG TAB PO (08:10)
[2018-08-20] MEDS: metFORMIN 500 MG TAB PO ×2 (08:10→17:08)
[2018-08-20] MEDS: METOPROLOL 50 MG TAB PO ×2 (08:11→20:47)
[2018-08-20] MEDS: LINAGLIPTIN 5 MG TABLET PO (08:11)
[2018-08-20] MEDS: BALSAM PERU/CASTOR OIL 60 GM TUBE TOP ×2 (08:12→21:15)
[2018-08-20] MEDS: INSULIN GLARGINE [LANTus] (100 UNITS/ML) SYG SC (08:19)
[2018-08-20] MEDS: INSULIN ASPART [NOVOLOG] 3 ML PEN SC ×7 (08:20→21:00)
[2018-08-20] MEDS: ENOXAPARIN 40 MG/0.4 ML SYG SC (08:21)
[2018-08-20 08:56] LABS: ADD MAN DIFF? NO
[2018-08-20 09:01] LABS: BASOPHIL # 0.1 10^3/ul (0.0-0.1); EOSINOPHILS # 0.3 10^3/ul (0.0-0.5); EOSINOPHILS % 2.7 % (0.0-7.0); HEMATOCRIT 26.9 % (42.0-52.0); HEMOGLOBIN 8.5 g/dl (14.0-18.0); LYMPHOCYTES # 1.9 10^3/ul (0.8-2.9); LYMPHOCYTES % 17.1 % (15.0-51.0); MEAN CORPUSCULAR HEMOGLOBIN 29.7 pg (29.0-33.0); MEAN CORPUSCULAR HGB CONC 31.6 g/dl (32.0-37.0); MEAN CORPUSCULAR VOLUME 94.1 fl (82.0-101.0); MEAN PLATELET VOLUME 9.5 fl (7.4-10.4); MONOCYTES % 9.1 % (0.0-11.0); NEUTROPHIL # 7.7 10^3/ul (1.6-7.5); NEUTROPHILS % 68.1 % (39.0-77.0); PLATELET COUNT 616 10^3/UL (140-415); RED BLOOD COUNT 2.86 10^6/ul (4.70-6.10); RED CELL DISTRIBUTION WIDTH 13.8 % (11.5-14.5)
[2018-08-20 09:01] LABS: WHITE BLOOD COUNT 11.3 10^3/ul (4.8-10.8)
[2018-08-20 09:22] LABS: ANION GAP 6 (5-13); BLOOD UREA NITROGEN 18 mg/dl (7-20); CALCIUM 8.3 mg/dl (8.4-10.2); CARBON DIOXIDE 26 mmol/L (21-31); CHLORIDE 104 mmol/L (97-110); CREATININE 1.17 mg/dl (0.61-1.24); Estimated GFR > 60 mL/min (>60); GLUCOSE 267 mg/dl (70-220); MAGNESIUM 1.8 mg/dl (1.7-2.5); PHOSPHORUS 3.7 mg/dl (2.5-4.9); POTASSIUM 4.3 mmol/L (3.5-5.1); SODIUM 136 mmol/L (135-144)
[2018-08-20] MEDS ORDERED: DEXTROSE 50% 50 ML SYRINGE IV ×2 (12:30)
[2018-08-20] MEDS ORDERED: GLUCAGON 1 MG INJ IM (12:30)
[2018-08-20] MEDS ORDERED: GLUCOSE GEL 15 GRAM TUBE PO ×2 (12:30)
[2018-08-20] MEDS ORDERED: GLUCOSE GEL 15 GRAM TUBE BUCCAL (12:30)
[2018-08-20] MEDS: FUROSEMIDE 40 MG INJ IV (13:31)
[2018-08-20] MEDS: ATORVASTATIN 80 MG TAB PO (20:46)
[2018-08-21] MEDS: OXYCODONE/ACETAMINOPHEN (5/325) TAB PO ×3 (05:20→22:14)
[2018-08-21 07:51] LABS: ADD MAN DIFF? NO
[2018-08-21 08:03] LABS: WHITE BLOOD COUNT 11.6 10^3/ul (4.8-10.8)
[2018-08-21 08:03] LABS: BASOPHIL # 0.1 10^3/ul (0.0-0.1); BASOPHILS % 0.9 % (0.0-2.0); EOSINOPHILS # 0.4 10^3/ul (0.0-0.5); EOSINOPHILS % 3.3 % (0.0-7.0); HEMOGLOBIN 8.9 g/dl (14.0-18.0); LYMPHOCYTES # 1.8 10^3/ul (0.8-2.9); LYMPHOCYTES % 15.1 % (15.0-51.0); MEAN CORPUSCULAR HEMOGLOBIN 29.9 pg (29.0-33.0); MEAN CORPUSCULAR HGB CONC 31.8 g/dl (32.0-37.0); MEAN PLATELET VOLUME 9.5 fl (7.4-10.4); MONOCYTE # 0.9 10^3/ul (0.3-0.9); NEUTROPHIL # 8.3 10^3/ul (1.6-7.5); NEUTROPHILS % 71.4 % (39.0-77.0); RED BLOOD COUNT 2.98 10^6/ul (4.70-6.10)
[2018-08-21 08:11] LABS: PLATELET COUNT 701 10^3/UL (140-415)
[2018-08-21] MEDS: NITROFURANTOIN (SR) 100 MG CAP PO (08:14)
[2018-08-21] MEDS: metFORMIN 500 MG TAB PO ×2 (08:14→18:04)
[2018-08-21] MEDS: CLOPIDOGREL 75 MG TAB PO (08:15)
[2018-08-21] MEDS: GABAPENTIN 300 MG CAP PO ×3 (08:15→22:13)
[2018-08-21] MEDS: FAMOTIDINE 20 MG TAB PO ×2 (08:15→22:13)
[2018-08-21] MEDS: LINAGLIPTIN 5 MG TABLET PO (08:15)
[2018-08-21] MEDS: BUMETANIDE 1 MG TAB PO (08:15)
[2018-08-21] MEDS: ASPIRIN 81 MG TAB PO (08:15)
[2018-08-21] MEDS: METOPROLOL 50 MG TAB PO ×2 (08:16→22:15)
[2018-08-21] MEDS: INSULIN GLARGINE [LANTus] (100 UNITS/ML) SYG SC (08:18)
[2018-08-21 08:19] LABS: ANION GAP 7 (5-13); BLOOD UREA NITROGEN 19 mg/dl (7-20); CALCIUM 8.8 mg/dl (8.4-10.2); CARBON DIOXIDE 29 mmol/L (21-31); CHLORIDE 101 mmol/L (97-110); Estimated GFR > 60 mL/min (>60); GLUCOSE 175 mg/dl (70-220); MAGNESIUM 1.7 mg/dl (1.7-2.5); PHOSPHORUS 3.8 mg/dl (2.5-4.9); POTASSIUM 4.3 mmol/L (3.5-5.1); SODIUM 137 mmol/L (135-144)
[2018-08-21] MEDS: INSULIN ASPART [NOVOLOG] 3 ML PEN SC ×7 (08:19→22:00)
[2018-08-21] MEDS: ENOXAPARIN 40 MG/0.4 ML SYG SC (08:27)
[2018-08-21] MEDS: ALBUTEROL/IPRATROPIUM (NEB) 3 ML AMP HHN ×3 (08:30→20:57)
[2018-08-21] MEDS: BUDESONIDE (NEB) 0.5MG/2ML AMP HHN ×2 (09:18→20:57)
[2018-08-21] MEDS: BALSAM PERU/CASTOR OIL 60 GM TUBE TOP ×2 (09:39→22:16)
[2018-08-21] MEDS ORDERED: BUMETANIDE 1 MG INJ IV ×2 (11:30→17:00)
[2018-08-21] MEDS: BUMETANIDE 2 MG in DEXTROSE 5% 17 ML IV ×3 (14:00→22:25)
[2018-08-21] MEDS: ATORVASTATIN 80 MG TAB PO (22:13)
[2018-08-22 06:17] LABS: ADD MAN DIFF? NO
[2018-08-22 06:23] LABS: BASOPHIL # 0.1 10^3/ul (0.0-0.1); BASOPHILS % 0.8 % (0.0-2.0); EOSINOPHILS # 0.3 10^3/ul (0.0-0.5); EOSINOPHILS % 2.8 % (0.0-7.0); HEMATOCRIT 25.4 % (42.0-52.0); HEMOGLOBIN 8.1 g/dl (14.0-18.0); LYMPHOCYTES # 1.8 10^3/ul (0.8-2.9); LYMPHOCYTES % 17.6 % (15.0-51.0); MEAN CORPUSCULAR HEMOGLOBIN 30.5 pg (29.0-33.0); MEAN CORPUSCULAR HGB CONC 31.9 g/dl (32.0-37.0); MEAN CORPUSCULAR VOLUME 95.5 fl (82.0-101.0); MEAN PLATELET VOLUME 9.5 fl (7.4-10.4); MONOCYTES % 9.6 % (0.0-11.0); NEUTROPHILS % 68.3 % (39.0-77.0); PLATELET COUNT 602 10^3/UL (140-415); RED BLOOD COUNT 2.66 10^6/ul (4.70-6.10)
[2018-08-22 06:23] LABS: WHITE BLOOD COUNT 10.2 10^3/ul (4.8-10.8)
[2018-08-22 06:47] LABS: ANION GAP 7 (5-13); BLOOD UREA NITROGEN 18 mg/dl (7-20); CALCIUM 8.4 mg/dl (8.4-10.2); CARBON DIOXIDE 28 mmol/L (21-31); CHLORIDE 103 mmol/L (97-110); CREATININE 1.25 mg/dl (0.61-1.24); Estimated GFR 58 mL/min (>60); GLUCOSE 151 mg/dl (70-220); MAGNESIUM 1.7 mg/dl (1.7-2.5); PHOSPHORUS 3.6 mg/dl (2.5-4.9); POTASSIUM 4.3 mmol/L (3.5-5.1); SODIUM 138 mmol/L (135-144)
[2018-08-22] MEDS: metFORMIN 500 MG TAB PO ×2 (08:00→17:48)
[2018-08-22] MEDS: INSULIN GLARGINE [LANTus] (100 UNITS/ML) SYG SC (08:07)
[2018-08-22] MEDS: INSULIN ASPART [NOVOLOG] 3 ML PEN SC ×8 (08:07→20:25)
[2018-08-22] MEDS: BUMETANIDE 1 MG TAB PO ×2 (08:14→20:15)
[2018-08-22] MEDS: METOPROLOL 50 MG TAB PO ×2 (08:15→20:19)
[2018-08-22] MEDS: GABAPENTIN 300 MG CAP PO ×3 (08:15→20:15)
[2018-08-22] MEDS: ASPIRIN 81 MG TAB PO (08:16)
[2018-08-22] MEDS: LINAGLIPTIN 5 MG TABLET PO (08:16)
[2018-08-22] MEDS: BALSAM PERU/CASTOR OIL 60 GM TUBE TOP ×2 (08:16→20:25)
[2018-08-22] MEDS: CLOPIDOGREL 75 MG TAB PO (08:16)
[2018-08-22] MEDS: FAMOTIDINE 20 MG TAB PO ×2 (08:19→20:16)
[2018-08-22] MEDS: ENOXAPARIN 40 MG/0.4 ML SYG SC (08:22)
[2018-08-22] MEDS: ALBUTEROL/IPRATROPIUM (NEB) 3 ML AMP HHN ×3 (08:45→20:28)
[2018-08-22] MEDS: BUDESONIDE (NEB) 0.5MG/2ML AMP HHN ×2 (08:45→20:28)
[2018-08-22] MEDS: OXYCODONE/ACETAMINOPHEN (5/325) TAB PO (16:50)
[2018-08-22] MEDS: ATORVASTATIN 80 MG TAB PO (20:15)
[2018-08-23] MEDS: OXYCODONE/ACETAMINOPHEN (5/325) TAB PO ×2 (03:55→18:26)
[2018-08-23 06:38] LABS: ADD MAN DIFF? NO
[2018-08-23 06:46] LABS: BASOPHIL # 0.1 10^3/ul (0.0-0.1); EOSINOPHILS # 0.3 10^3/ul (0.0-0.5); EOSINOPHILS % 2.7 % (0.0-7.0); HEMATOCRIT 27.6 % (42.0-52.0); HEMOGLOBIN 8.8 g/dl (14.0-18.0); LYMPHOCYTES # 1.5 10^3/ul (0.8-2.9); LYMPHOCYTES % 15.9 % (15.0-51.0); MEAN CORPUSCULAR HEMOGLOBIN 30.3 pg (29.0-33.0); MEAN CORPUSCULAR HGB CONC 31.9 g/dl (32.0-37.0); MEAN CORPUSCULAR VOLUME 95.2 fl (82.0-101.0); MEAN PLATELET VOLUME 9.3 fl (7.4-10.4); MONOCYTE # 0.8 10^3/ul (0.3-0.9); MONOCYTES % 8.6 % (0.0-11.0); NEUTROPHIL # 6.9 10^3/ul (1.6-7.5); NEUTROPHILS % 71.1 % (39.0-77.0); PLATELET COUNT 662 10^3/UL (140-415); RED CELL DISTRIBUTION WIDTH 14.1 % (11.5-14.5)
[2018-08-23 06:46] LABS: WHITE BLOOD COUNT 9.7 10^3/ul (4.8-10.8)
[2018-08-23 07:16] LABS: ANION GAP 9 (5-13); BLOOD UREA NITROGEN 21 mg/dl (7-20); CARBON DIOXIDE 28 mmol/L (21-31); CHLORIDE 102 mmol/L (97-110); CREATININE 1.12 mg/dl (0.61-1.24); Estimated GFR > 60 mL/min (>60); GLUCOSE 135 mg/dl (70-220); MAGNESIUM 1.6 mg/dl (1.7-2.5); PHOSPHORUS 4.5 mg/dl (2.5-4.9); SODIUM 139 mmol/L (135-144)
[2018-08-23] MEDS: INSULIN ASPART [NOVOLOG] 3 ML PEN SC ×7 (07:55→20:30)
[2018-08-23] MEDS: GABAPENTIN 300 MG CAP PO ×3 (08:27→20:30)
[2018-08-23] MEDS: BUMETANIDE 1 MG TAB PO ×2 (08:27→20:29)
[2018-08-23] MEDS: FAMOTIDINE 20 MG TAB PO ×2 (08:27→20:29)
[2018-08-23] MEDS: CLOPIDOGREL 75 MG TAB PO (08:27)
[2018-08-23] MEDS: ASPIRIN 81 MG TAB PO (08:27)
[2018-08-23] MEDS: LINAGLIPTIN 5 MG TABLET PO (08:28)
[2018-08-23] MEDS: metFORMIN 500 MG TAB PO ×2 (08:28→17:42)
[2018-08-23] MEDS: METOPROLOL 50 MG TAB PO ×2 (08:29→20:30)
[2018-08-23] MEDS: BALSAM PERU/CASTOR OIL 60 GM TUBE TOP ×2 (08:30→20:30)
[2018-08-23] MEDS: ENOXAPARIN 40 MG/0.4 ML SYG SC (08:36)
[2018-08-23] MEDS: INSULIN GLARGINE [LANTus] (100 UNITS/ML) SYG SC (08:36)
[2018-08-23] MEDS: ALBUTEROL/IPRATROPIUM (NEB) 3 ML AMP HHN ×3 (08:43→19:52)
[2018-08-23] MEDS: BUDESONIDE (NEB) 0.5MG/2ML AMP HHN ×2 (08:44→19:52)
[2018-08-23] MEDS: LISINOPRIL 5 MG TAB PO (10:38)
[2018-08-23] MEDS: MAGNESIUM SULFATE 2 GM/50 ML 50 ML IVPB (10:39)
[2018-08-23] MEDS: ATORVASTATIN 80 MG TAB PO (20:29)
[2018-08-24 06:34] LABS: ADD MAN DIFF? NO
[2018-08-24 06:36] LABS: BASOPHIL # 0.1 10^3/ul (0.0-0.1); EOSINOPHILS # 0.2 10^3/ul (0.0-0.5); EOSINOPHILS % 2.2 % (0.0-7.0); HEMATOCRIT 28.7 % (42.0-52.0); LYMPHOCYTES # 1.7 10^3/ul (0.8-2.9); LYMPHOCYTES % 16.2 % (15.0-51.0); MEAN CORPUSCULAR HGB CONC 31.4 g/dl (32.0-37.0); MEAN CORPUSCULAR VOLUME 95.7 fl (82.0-101.0); MEAN PLATELET VOLUME 9.2 fl (7.4-10.4); MONOCYTE # 0.9 10^3/ul (0.3-0.9); MONOCYTES % 8.2 % (0.0-11.0); NEUTROPHIL # 7.5 10^3/ul (1.6-7.5); NEUTROPHILS % 71.7 % (39.0-77.0); RED CELL DISTRIBUTION WIDTH 14.4 % (11.5-14.5)
[2018-08-24 06:36] LABS: WHITE BLOOD COUNT 10.5 10^3/ul (4.8-10.8)
[2018-08-24 07:01] LABS: ANION GAP 9 (5-13); BLOOD UREA NITROGEN 25 mg/dl (7-20); CARBON DIOXIDE 29 mmol/L (21-31); CHLORIDE 100 mmol/L (97-110); CREATININE 1.36 mg/dl (0.61-1.24); Estimated GFR 53 mL/min (>60); GLUCOSE 167 mg/dl (70-220); MAGNESIUM 1.6 mg/dl (1.7-2.5); PHOSPHORUS 4.4 mg/dl (2.5-4.9); POTASSIUM 3.9 mmol/L (3.5-5.1); SODIUM 138 mmol/L (135-144)
[2018-08-24 07:29] LABS: PLATELET COUNT 655 10^3/UL (140-415)
[2018-08-24] MEDS: OXYCODONE/ACETAMINOPHEN (5/325) TAB PO ×2 (07:39→13:07)
[2018-08-24] MEDS: metFORMIN 500 MG TAB PO (07:45)
[2018-08-24] MEDS: ALBUTEROL/IPRATROPIUM (NEB) 3 ML AMP HHN ×2 (08:03→13:35)
[2018-08-24] MEDS: INSULIN ASPART [NOVOLOG] 3 ML PEN SC ×4 (08:13→12:51)
[2018-08-24] MEDS: BALSAM PERU/CASTOR OIL 60 GM TUBE TOP (08:20)
[2018-08-24] MEDS: BUMETANIDE 1 MG TAB PO (08:21)
[2018-08-24] MEDS: GABAPENTIN 300 MG CAP PO ×2 (08:22→13:06)
[2018-08-24] MEDS: CLOPIDOGREL 75 MG TAB PO (08:22)
[2018-08-24] MEDS: LINAGLIPTIN 5 MG TABLET PO (08:22)
[2018-08-24] MEDS: FAMOTIDINE 20 MG TAB PO (08:22)
[2018-08-24] MEDS: LISINOPRIL 5 MG TAB PO (08:22)
[2018-08-24] MEDS: METOPROLOL 50 MG TAB PO (08:23)
[2018-08-24] MEDS: MAGNESIUM SULFATE 2 GM/50 ML 50 ML IVPB (08:24)
[2018-08-24] MEDS: ASPIRIN 81 MG TAB PO (08:33)
[2018-08-24] MEDS: INSULIN GLARGINE [LANTus] (100 UNITS/ML) SYG SC (08:47)
[2018-08-24] MEDS: ENOXAPARIN 40 MG/0.4 ML SYG SC (08:47)
[2018-08-24] MEDS: BUDESONIDE (NEB) 0.5MG/2ML AMP HHN (10:11)
[2018-08-24] MEDS ORDERED: BUMETANIDE 1 MG TAB PO (21:00)
== END 2018-08-24 16:25 | disposition home health service (06) | DRG 233 ==
LOC: TEL 17:24 → E/R 11:14 → TEL 08-12 19:30 → ICU 08-12 19:58 → TEL 08-11 17:30
PROVIDERS: Internal Medicine
PROC: 021309W Bypass Coronary Artery, Four or More Arteries from Aorta with Autologous Venous Tissue, Open Approach (ICD-10-PCS; principal; 2018-08-11 12:56)
PROC: 4A023N7 Measurement of Cardiac Sampling and Pressure, Left Heart, Percutaneous Approach (ICD-10-PCS; 2018-08-11 12:56)
PROC: 06BQ4ZZ Excision of Left Saphenous Vein, Percutaneous Endoscopic Approach (ICD-10-PCS; 2018-08-11 12:56)
PROC: 06BP4ZZ Excision of Right Saphenous Vein, Percutaneous Endoscopic Approach (ICD-10-PCS; 2018-08-11 12:56)
PROC: 4A033BC Measurement of Arterial Pressure, Coronary, Percutaneous Approach (ICD-10-PCS; 2018-08-11 12:56)
PROC: B241ZZ3 Ultrasonography of Multiple Coronary Arteries, Intravascular (ICD-10-PCS; 2018-08-11 12:56)
PROC: 5A1221Z Performance of Cardiac Output, Continuous (ICD-10-PCS; 2018-08-11 12:56)
PROC: 4A023N7 Measurement of Cardiac Sampling and Pressure, Left Heart, Percutaneous Approach (ICD-10-PCS; 2018-08-11 12:56)
PROC: B2111ZZ Fluoroscopy of Multiple Coronary Arteries using Low Osmolar Contrast (ICD-10-PCS; 2018-08-11 12:56)
PROC: 30233K1 Transfusion of Nonautologous Frozen Plasma into Peripheral Vein, Percutaneous Approach (ICD-10-PCS; 2018-08-11 12:56)
PROC: 30233N1 Transfusion of Nonautologous Red Blood Cells into Peripheral Vein, Percutaneous Approach (ICD-10-PCS; 2018-08-11 12:56)
PROC: 30233R1 Transfusion of Nonautologous Platelets into Peripheral Vein, Percutaneous Approach (ICD-10-PCS; 2018-08-11 12:56)
DX: I21.4 Non-ST elevation (NSTEMI) myocardial infarction (principal); J96.01 Acute respiratory failure with hypoxia; I50.31 Acute diastolic (congestive) heart failure; N17.0 Acute kidney failure with tubular necrosis; J18.9 Pneumonia, unspecified organism; N39.0 Urinary tract infection, site not specified; N04.9 Nephrotic syndrome with unspecified morphologic changes; I13.0 Hypertensive heart and chronic kidney disease with heart failure and stage 1 through stage 4 chronic kidney disease, or unspecified chronic kidney disease; E87.0 Hyperosmolality and hypernatremia; E66.9 Obesity, unspecified; Z68.31 Body mass index [BMI] 31.0-31.9, adult; I25.10 Atherosclerotic heart disease of native coronary artery without angina pectoris; D63.8 Anemia in other chronic diseases classified elsewhere; F10.10 Alcohol abuse, uncomplicated; Z86.73 Personal history of transient ischemic attack (TIA), and cerebral infarction without residual deficits; E11.51 Type 2 diabetes mellitus with diabetic peripheral angiopathy without gangrene; E11.40 Type 2 diabetes mellitus with diabetic neuropathy, unspecified; Z91.14 Patient's other noncompliance with medication regimen; F41.9 Anxiety disorder, unspecified; I27.20 Pulmonary hypertension, unspecified; E78.5 Hyperlipidemia, unspecified; E11.22 Type 2 diabetes mellitus with diabetic chronic kidney disease; N18.9 Chronic kidney disease, unspecified; Y71.3 Surgical instruments, materials and cardiovascular devices (including sutures) associated with adverse incidents; R60.0 Localized edema; Z87.898 Personal history of other specified conditions; Z79.4 Long term (current) use of insulin; B96.20 Unspecified Escherichia coli [E. coli] as the cause of diseases classified elsewhere; E83.9 Disorder of mineral metabolism, unspecified
CPT/HCPCS: 36430; 36592; 36600; 70450; 71045; 74177; 80048; 80053; 80061; 80307; 81001; 82140; 82150; 82550; 82553; 82728; 82803; 82962; 83036; 83540; 83615; 83690; 83735; 83880; 84100; 84132; 84145; 84443; 84466; 84484; 85014; 85018; 85025; 85045; 85610; 85730; 86674; 86850; 86900; 86901; 86920; 87040-91; 87045; 87081; 87086; 92526; 92610; 92978; 93005; 93306; 93312; 93325; 93458; 93571; 93880; 93970; 94002; 94003; 94640; 94660; 94664; 94770; 96365; 96375; 97116; 97161; 97530; 99285-25